=== PATIENT | male | born 1965 | race Caucasian/White ===

== ENCOUNTER → 2020-04-09 16:39 | Outpatient (CLI) | payer OTHER, SELFPAY ==
--- NOTE | ~2020-04-09 | XR_ITS ---
XR hand BI arthritis min 3V DATE: 04/09/2020 17:24 INDICATION: Hand pain TECHNIQUE: 4 views of each hand COMPARISON: 10/25/2016 bilateral hands FINDINGS: Right hand: Osteoarthritic changes are noted at the first and third metacarpophalangeal joints and at some of the interphalangeal joints. No fracture, dislocation, periosteal reaction or bone destruction or erosive change is noted. Left hand: Osteoarthritic changes noted at the first carpometacarpal, first and second metacarpophalangeal and s ome interphalangeal joints. No fracture, dislocation, periosteal reaction or bone destruction or erosive change is evident. IMPRESSION: Joint space narrowing at third metacarpophalangeal joint on the right 10/25/2016 Reviewed, dictated and finalized at location A. IMPRESSION: Joint space narrowing at third metacarpophalangeal joint on the rig ht 10/25/2016
== END ==
PROVIDERS: PCP Plastic Surgery; Visit Provider Plastic Surgery
DX: M19.031 Primary osteoarthritis, right wrist (principal); M19.041 Primary osteoarthritis, right hand
CPT/HCPCS: 73130

== ENCOUNTER 2020-06-13 11:27 | Outpatient (CLI) | payer OTHER, SELFPAY ==
--- NOTE | 2020-06-13 11:45 | ECG_ITS ---
Measurements Intervals [place] Rate: 65 P: 44 FL: 154 QRS: 42 QRSD: 89 T: 56 QT: 376 QTc: 393 Interpretive Statements SINUS RHYTHM NORMAL ECG Electronically Signed On 06-13-2020 15:14:40 CDT by Wayne Tran D.O.
== END 2020-06-13 11:28 | disposition home or self-care (01) ==
PROVIDERS: PCP Family Medicine
DX: M47.22 Other spondylosis with radiculopathy, cervical region (principal)
CPT/HCPCS: 93005

== ENCOUNTER 2020-07-10 19:55 | Emergency (ER) | payer OTHER, SELFPAY ==
--- NOTE | ~2020-07-10 | XR_ITS ---
EXAMINATION: XR shoulder RT min 2V DATE: 07/10/2020 20:28 INDICATION: Right shoulder pain and deformity post fall TECHNIQUE: AP and transscapular Y views of the right shoulder were obtained. COMPARISON: None FINDINGS: Anterior right glenohumeral dislocation with the right humeral head positioned along the anteroinferi or margin of the glenoid. No evident fracture. Normal alignment and joint space at the right acromioc lavicular joint. Visualized portions of the right lung are clear. Multilevel mid to lower cervical an terior spinal fusion with interbody bone graft cages and anterior plate and screw fixation likely at C4-C7. IMPRESSION: Anterior right glenohumeral dislocation. Reviewed, dictated and finalized at location A.
--- NOTE | ~2020-07-10 | XR_ITS ---
EXAMINATION: XR shoulder RT min 2V DATE: 07/10/2020 20:42 INDICATION: Status postreduction right glenohumeral dislocation TECHNIQUE: AP and transscapular Y views of the right shoulder were obtained. COMPARISON: None FINDINGS: Successful reduction of the previously dislocated right glenohumeral joint which is now in normal ali gnment. No fracture. Acromioclavicular joint is normal. Soft tissues are unremarkable. IMPRESSION: Successful reduction of the previously dislocated right glenohumeral joint which is now in normal ali gnment. No evident fracture. Reviewed, dictated and finalized at location A. IMPRESSION: Successful reduction of the previously dislocated right glenohumeral joint whic h is now in normal alignment. No evident fracture.
[2020-07-10 19:52] VITALS: BP 95/69; PULSE 64; RESP 20; TEMP 36.4; O2SAT 99
--- NOTE | 2020-07-10 19:57 | ED.HEATRA ---
HPI - Head Injury General Chief complaint: Head Injury Stated complaint: fall History of Present Illness HPI Narrative: 54 yo male brought in by EMS from home after a fall. He reports that he was bending over to pick something up when he lost his balance and fell. He struck his forehead and landed on outstretched right hand. He has severe pain and limited ROM in the right shoulder. Additionally he sustained a laceration to the forehead. He admits to drinking alcohol earlier in the evening. Uncertain if he lost consciousness. Related Data Allergies Allergy/AdvReac Type Severity Reaction Status Date / Time niacin Allergy Unknown flushing Verified 07/10/20 20:03 Review of Systems Review of Systems: All systems reviewed & are unremarkable except as noted in HPI and below Constitutional: Constitutional: Denies fever(s) and Denies weakness Cardiovascular: Cardiovascular: Denies chest pain Respiratory: Respiratory: Denies dyspnea Gastrointestinal: Gastrointestinal: Denies nausea and Denies vomiting Musculoskeletal: Musculoskeletal: Denies back pain Neurologic: Denies dizziness, Denies syncope, Reports headache(s) and Denies weakness PMF Social History Social History Smoking status: Current every day smoker Alcohol intake: current Exam Const: General: no acute distress and alert Orientation/consciousness: patient oriented x3 HENMT: Other: 4 cm forehead laceration. Chipped tooth #9. Eyes: Pupils: Equal, round and reactive pupils present EOM: EOMs intact bilaterally Resp: Effort & Inspection: normal respiratory effort Auscultation: clear to auscultation bilaterally Cardio: Rate: regular rate Rhythm: regular rhythm GI: GI Palp: Yes Soft to palpation and No Tenderness to palpation present (GI) Skin: General skin exam: normal color Other: Distal motor and sensory intact to left arm. Neuro: General: patient oriented x3, moves all extremities and no focal motor deficits Cranial nerves: Yes CN's II-XII intact bilaterally Speech: Abnormal speech present slurred Extrem: Other: deformity of left shoulder. Significantly reduced ROM. Course Vital Signs Vital signs: Vital Signs Temperature 36.4 C 07/10/20 19:52 Pulse Rate 64 07/10/20 19:52 Respiratory Rate 20 07/10/20 19:52 Blood Pressure 95/69 L 07/10/20 19:52 Pulse Oximetry 99 07/10/20 19:52 Temperature 36.4 C 07/10/20 19:52 Pulse Rate 77 07/10/20 21:21 Respiratory Rate 19 07/10/20 21:21 Blood Pressure 138/75 07/10/20 21:21 Pulse Oximetry 97 07/10/20 21:21 Procedures Laceration Laceration 1: Date: 07/10/20 Time: 21:47 Site: face Size (cm): 4 Description: linear Depth: simple, single layer Local Anesthetic: lidocaine 1% and with epi Amount of anesthesia used (mL): 4 Pre-repair: wound explored and irrigated ====== Skin Level ====== Skin layer closed with: other (Fast Gut) Size (cm): 5-0 Number of sutures: 5 Technique: simple, interrupted ====== Subcutaneous Layer ====== ====== Muscle Layer ====== ====== Tendon Layer ====== Orthopedic Joint Reduction Joint #1: Side: right Joint Reduction Location: shoulder Analgesia: other (morphine) Pre-Procedure Neuro Vascular Exam: normal Shoulder Technique Used (if applicable): external rotation Post-reduction neuro exam: intact Post-reduction vascular: intact Post Reduction X-Ray Obtained: Yes Post Reduction X-Ray Results: reduced Splint Applied: Yes Patient Tolerated Procedure: well Discharge Plan Discharge Clinical Impression: Anterior shoulder dislocation Qualifiers: Encounter type: initial encounter Laterality: right Qualified Code(s): S43.014A - Anterior dislocation of right humerus, initial encounter Forehead laceration Qualifie
[2020-07-10] MEDS: MORPHINE SULFATE (*CRX) 4 MG/ML INJ IV PUSH (20:06)
[2020-07-10] MEDS: KETOROLAC 30 MG/ML VIAL (*BKC) IV PUSH (21:18)
[2020-07-10 21:21] VITALS: BP 138/75; PULSE 77; RESP 19; O2SAT 97
[2020-07-10] MEDS: LIDO 1%/EPINEPHRINE 1:100,000 10 ML VIAL 5 ML INFILTRATE (21:35)
--- NOTE | 2020-07-10 21:36 | PC.NURSE ---
in room suturing patient.
[2020-07-10 22:20] VITALS: BP 138/78; PULSE 70; RESP 18; TEMP 36.7; O2SAT 97
== END 2020-07-10 22:21 | disposition home or self-care (01) ==
PROVIDERS: Emergency Provider Emergency Medicine; PCP Family Medicine
DX: S43.014A Anterior dislocation of right humerus, initial encounter (principal); S01.81XA Laceration without foreign body of other part of head, initial encounter; F17.200 Nicotine dependence, unspecified, uncomplicated; W18.39XA Other fall on same level, initial encounter
CPT/HCPCS: 12013; 23650; 73030; 96374; 96375; 99285; J1885; J2270

== ENCOUNTER → 2020-09-07 08:24 | Outpatient (CLI) | payer OTHER, SELFPAY ==
--- NOTE | ~2020-09-07 | MR_ITS ---
EXAMINATION: MR shoulder RT wo con DATE: 09/07/2020 09:27 INDICATION: Right shoulder pain. TECHNIQUE: Magnetic resonance imaging (MRI) of the right shoulder was performed without intravenous c ontrast. Sequences included axial PD-weighted FS FSE, coronal oblique PD-weighted FS FSE and T2-weigh jace FS FSE, and sagittal oblique T2-weighted FS FSE and T1-weighted FSE. COMPARISON: Right shoulder radiographs 07/15/2020 FINDINGS: Coracoacromial arch: The acromion undersurface is curved in morphology (type II). There is severe acromioclavicular joint osteoarthritis. There is an effusion of the acromioclavicular joint that is likely contiguous with mo derate subacromial/subdeltoid bursitis. Rotator cuff: There is severe supraspinatus and infraspinatus tendinopathy. There is a full-thickness tear of anter ior supraspinatus tendon measuring 8 mm anterior to posterior by 23 mm proximal to distal. There is a bursal sided partial-thickness tear of supraspinatus and infraspinatus tendons. Teres minor tendon i s normal. There is severe subscapularis tendinopathy with distal interstitial tear. There is no asymm etric fatty atrophy of the rotator cuff muscle bellies. Biceps tendon and glenoid labrum: Biceps tendon is medially displaced into the subscapularis tendon tear. There is mild intra-articular biceps tendinopathy. There is a tear of superior labrum from 11:00 to 12:00 (SLAP tear). Fluid: There is a moderate-sized glenohumeral joint effusion. Bones/cartilage: There is shallow partial-thickness cartilage loss of glenoid and humeral head. IMPRESSION: 1. Severe rotator cuff tendinopathy with full-thickness rotator cuff tear. 2. Mild glenohumeral joint chondrosis. SLAP tear. 3. Severe acromioclavicular joint osteoarthritis. 4. Mild biceps tendinopathy. Medial displacement of the biceps tendon into a subscapularis tendon par tial tear. 5. Moderate-sized glenohumeral joint effusion, moderate subacromial/subdeltoid bursitis, and likely c ontiguous acromioclavicular joint effusion. Reviewed, dictated and finalized at location A. DEMONSTRATOR IMPRESSION: 1. Severe rotator cuff tendinopathy with full-thickness rotator cuff tear. 2. Mild glenohumeral joint chondrosis. SLAP tear. 3. Severe acromioclavicular joint osteoarthritis. 4. Mild biceps tendinopathy. Medial displacement of the biceps tendon into a hoskins bscapularis tendon partial tear. 5. Moderate-sized glenohumeral joint effusion, moderate subacromial/subdeltoid bursitis, and likely contiguous acromioclavicular joint effusion.
== END ==
PROVIDERS: Visit Provider Nurse Practitioner Family
DX: M19.011 Primary osteoarthritis, right shoulder (principal); S43.431A Superior glenoid labrum lesion of right shoulder, initial encounter; M75.121 Complete rotator cuff tear or rupture of right shoulder, not specified as traumatic; M75.51 Bursitis of right shoulder
CPT/HCPCS: 73221

== ENCOUNTER 2020-12-15 11:27 | Outpatient (CLI) | payer OTHER, SELFPAY | END 2020-12-15 11:28 | disposition home or self-care (01) | LOC: ANHCOVIDVC 11:27 | PROVIDERS: PCP Family Medicine | DX: Z23 Encounter for immunization (principal) | CPT/HCPCS: 0001A; 91300 ==

== ENCOUNTER 2021-01-05 11:15 | Outpatient (CLI) | payer OTHER, SELFPAY | END 2021-01-05 11:16 | disposition home or self-care (01) | LOC: ANHCOVIDVC 11:16 | PROVIDERS: PCP Family Medicine | DX: Z23 Encounter for immunization (principal) | CPT/HCPCS: 0002A; 91300 ==

== ENCOUNTER → 2021-02-22 14:47 | Outpatient (CLI) | payer OTHER, SELFPAY ==
--- NOTE | ~2021-02-22 | CT_ITS ---
EXAMINATION: CT lung screening DATE: 02/22/2021 15:14 INDICATION: Personal history of nicotine dependence, current smoker with 35 pack year history TECHNIQUE: Computed tomography (CT) of the chest was performed without intravenous contrast. The dose -length product (DLP) was 382.51 mGy-cm. Automated exposure control and iterative reconstruction tech [employer] were employed. COMPARISON: None FINDINGS: No suspicious pulmonary nodules are identified. The lungs are free of acute opacities. Ther e is no pleural effusion or pneumothorax. No pathologically enlarged thoracic lymph nodes are identif ied. The heart size is normal. Calcified coronary artery atherosclerosis is noted. There are partiall y imaged changes of anterior fusion in the lower cervical spine. Subendocardial fat deposition in the left ventricular apex and interventricular septum is consistent with prior myocardial infarction. IMPRESSION: 1. Lung-RADS category 1: Negative. Continue annual screening with noncontrast low-dose chest CT in 12 months. Reviewed, dictated and finalized at location A. IMPRESSION: 1. Lung-RADS category 1: Negative. Continue annual screening with noncontrast l ow-dose chest CT in 12 months.
== END ==
PROVIDERS: PCP Family Medicine; Visit Provider Family Medicine
DX: Z12.2 Encounter for screening for malignant neoplasm of respiratory organs (principal); Z87.891 Personal history of nicotine dependence
CPT/HCPCS: 71271

== ENCOUNTER 2021-04-21 19:42 | Emergency (ER) | payer OTHER, SELFPAY ==
[2021-04-21 19:51] VITALS: BP 143/80; PULSE 84; RESP 16; TEMP 36.2; O2SAT 99
--- NOTE | 2021-04-21 20:44 | ED.GENADULT ---
HPI - General Adult General Chief complaint: Animal Bite Stated complaint: dog bite Time Seen by Provider: 04/21/21 20:44 Source: patient and RN notes reviewed Mode of arrival: ambulatory Limitations: no limitations History of Present Illness HPI narrative: 55-year-old male presents with complaints of dog bite to RT hand, 1st (baby), 2nd (index), and 3rd (middle) fingers, occurring at approximately 19:00 today. ?Chintan reports breaking up a dog fight (his dog and his daughter's dog) and RT hand was caught in the middle, not sure which dog bit his hand. ?Pressure dressing to control bleeding. ?Discomfort, swelling, and redness. ?Bloody drainage. ?Denies new tingling or numbness. Denies immobility. ?Exacerbating factors consist of movement and palpation. ?No relieving factors. ?Denies altered sensation, back pain, neck pain, and suspected foreign body. ?Denies falling, hitting head, or loss of consciousness. ?Remains active. ?Tetanus vaccine NOT up-to-date. 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 ?The patient reports he has not been diagnosed with COVID-19. ?The patient reports he received 2 [employer] COVID-19 vaccines. ?The patient reports he is not waiting for the results of a COVID-19 lab test. ?The patient reports she does not have fever, chills, weakness, or fatigue. ?The patient reports he does not have a new or worsening cough or shortness of breath. ?The patient reports he does not have any rhinorrhea, congestion, loss of taste, sore throat, and diarrhea. ?Denies recent traveling. Denies concerns for COVID-19 or exposures. At this time, the patient is not suspected of having COVID-19.? Some parts of this dictation were generated by voice recognition software and may contain typographical and/or grammatical inaccuracies. Related Data Allergies Allergy/AdvReac Type Severity Reaction Status Date / Time niacin Allergy Unknown flushing Verified 01/27/21 15:00 Review of Systems Review of Systems: Narrative: CONSTITUTIONAL: Denies fever, chills, sweats. EYES: Denies visual changes, redness, discharge. ENT: Denies rhinorrhea, congestion, sore throat, otalgia. CARDIOVASCULAR: Denies chest pain, palpitations, edema. RESPIRATORY: Denies dyspnea, wheezing, cough. GASTROINTESTINAL: Denies abdominal pain, nausea, vomiting, diarrhea. GENITOURINARY: Denies dysuria, hematuria, abnormal discharge. SKIN: Denies rash or itching. Complaints of dog bite to RT hand, 1st (baby), 2nd (index), and 3rd (middle) fingers with mild redness, swelling, discomfort, bloody drainage. MUSCULOSKELETAL: Denies acute back pain, joint pain, or myalgia. NEUROLOGIC: Denies numbness or focal weakness. PSYCHIATRIC: Denies anxiety or depression. All other systems reviewed are negative, except as documented in HPI and below. [facility] Past Medical History Medical History Anxiety Depression Dislocation, shoulder closed Obesity Rotator cuff tear Surgical History Surgical History H/O shoulder surgery History of fusion of cervical spine Family History Family History Father Family history of cardiovascular disease Acute myocardial infarction, Onset Age: 40 Family history of aortic aneurysm Mother Family history of Alzheimer's disease Social History Social History Smoking packs per day: 0.5 Smoking cigarettes per day: 10.0 Years smoked: 35 Smoking pack-years: 17.50 Smoking status: Current every day smoker (SMOKING AGE 17 1PPD FOR 38 YEARS NOW SMOKING 7 CIG S A DAY) Tobacco type: cigarettes Alcohol intake: current Drinks per week: 6 Substance use: unknown Gender identity (if verbalized by the patient): Male Comments At time of signature, agree with nurse past medical, surgical, social, and family history. The
[2021-04-21] MEDS: TETANUS,DIPHTHERIA,AC PERTUSSIS ADULT (0.5 ML) BOOSTRIX IM (20:55)
== END 2021-04-21 21:38 | disposition home or self-care (01) ==
PROVIDERS: Emergency Provider Nurse Practitioner Family; PCP Family Medicine
DX: S61.451A Open bite of right hand, initial encounter (principal); S61.250A Open bite of right index finger without damage to nail, initial encounter; S61.252A Open bite of right middle finger without damage to nail, initial encounter; S61.256A Open bite of right little finger without damage to nail, initial encounter; W54.0XXA Bitten by dog, initial encounter; Z23 Encounter for immunization; F17.210 Nicotine dependence, cigarettes, uncomplicated; E66.9 Obesity, unspecified; Z68.30 Body mass index [BMI] 30.0-30.9, adult
CPT/HCPCS: 12001; 90471; 90715; 99213; G0463

== ENCOUNTER 2021-12-30 10:00 | Outpatient (CLI) | payer OTHER, SELFPAY ==
--- NOTE | ~2021-12-30 | CT_ITS ---
EXAMINATION: CT diagnostic chest w con EXAM DATE: 12/30/2021 16:02 INDICATION: R04.2 - Hemoptysis. TECHNIQUE: Spiral CT of the chest following intravenous injection of 75 mL Omnipaque 350. Axial, cor onal and sagittal images of the chest were reviewed. Coronal maximum intensity pixel images of chest reviewed. The dose-length product (DLP) for this examination was 404.56 mGy-cm. The exposure was t ailored according to patient size (auto mA exposure control), and iterative reconstruction ([employer]) was used as additional dose reduction technique. Comparison is made to prior examination from 02/22/2021. FINDINGS: Small amount of right upper lobe airspace disease appearance, probably pneumonitis. A 3 mo nth follow-up chest CT is recommended to exclude chronic process. Possible other faint regions of brynn undglass airspace disease. No central pulmonary emboli. There are no pleural or pericardial effusion s. Tracheobronchial tree is patent. There is no mediastinal, hilar or axillary lymphadenopathy. There is no pneumothorax. Heart normal in size. There is mild coronary arterial calcification, a rterial sclerosis. Upper abdomen is unremarkable. There is mild thoracic spondylosis without osteo blastic or osteolytic lesions identified. IMPRESSION: Subsegmental right apical groundglass airspace disease, probably pneumonitis. Consider ea rly viral or bacterial pneumonia. Possible smaller regions of groundglass airspace disease. 3 month f ollow-up chest CT without contrast recommended. Reviewed, dictated and finalized at location G. IMPRESSION: Subsegmental right apical groundglass airspace disease, probably pn eumonitis. Consider early viral or bacterial pneumonia. Possible smaller region s of groundglass airspace disease. 3 month follow-up chest CT without contrast recommended.
--- NOTE | ~2021-12-30 | XR_ITS ---
EXAMINATION: XR chest 2V 12/30/2021 10:22 INDICATION: Hemoptysis. Sinus congestion. PROCEDURE: 2 view chest COMPARISON: No prior studies for comparison. FINDINGS: The lungs are clear. The cardiomediastinal silhouette is within normal limits. There are no pleural effusions. There is no pneumothorax suspected. IMPRESSION: 1: NO ACUTE CARDIOPULMONARY DISEASE. Reviewed, dictated and finalized at location A.
== END 2021-12-30 10:01 | disposition home or self-care (01) ==
PROVIDERS: PCP Family Medicine; Visit Provider Family Medicine
DX: R04.2 Hemoptysis (principal); F17.200 Nicotine dependence, unspecified, uncomplicated; I25.10 Atherosclerotic heart disease of native coronary artery without angina pectoris; I70.90 Unspecified atherosclerosis; M47.812 Spondylosis without myelopathy or radiculopathy, cervical region
CPT/HCPCS: 71046; 71260; Q9967

== ENCOUNTER 2022-04-06 08:03 | Outpatient (CLI) | payer OTHER, SELFPAY ==
--- NOTE | ~2022-04-06 | CT_ITS ---
EXAMINATION: CT diagnostic chest wo con DATE: 04/06/2022 08:29 INDICATION: Recent hemoptysis. 12/26/2021 CTA chest report of subsegmental right apical groundglass airspace disease, probable pneumo nitis, possibly early viral or bacterial pneumonia. Possible smaller regions of groundglass airspace disease. [address] chest follow-up is recommended TECHNIQUE: Computed tomography (CT) of the chest was performed without intravenous contrast. Automate d exposure control and iterative reconstruction technique were employed. Exam dose: 415.41 mGy-cm to igor exam DLP. COMPARISON: 12/30/2021 CT chest FINDINGS: The lungs are clear of infiltrate or consolidation. No pulmonary mass density. Normal heart size. Coronary artery calcification. No pericardial or pleural effusion. Thoracic aortic and right brachiocephalic artery calcification. No thoracic aortic aneurysm. No hilar or mediastinal mass lesion or lymphadenopathy. Normal morphology of the adrenal glands. Probable small cyst of the left hepatic lobe. Normal splenic size. Status post anterior cervical spine surgical fusion. IMPRESSION: The lungs are clear. Resolution of previous right apical infiltrate since 12/30/2021 Reviewed, dictated and finalized at Location A. Reviewed, dictated and finalized at location B. IMPRESSION: The lungs are clear. Resolution of previous right apical infiltrat e since 12/30/2021
== END 2022-04-06 08:04 | disposition home or self-care (01) ==
PROVIDERS: PCP Family Medicine; Visit Provider Physician Assistant
DX: J18.9 Pneumonia, unspecified organism (principal); I25.10 Atherosclerotic heart disease of native coronary artery without angina pectoris; R04.2 Hemoptysis; Z98.1 Arthrodesis status
CPT/HCPCS: 71250

== ENCOUNTER 2023-05-12 08:00 | Outpatient (CLI) | payer OTHER, SELFPAY ==
--- NOTE | ~2023-05-12 | CT_ITS ---
CT Scan of the Chest without Contrast: Clinical Indication: Lung cancer screening, personal history of nicotine dependence Technique: Contiguous sections were acquired throughout the chest without intravenous contrast. Dose reduction technique was used on this scan by utilizing automated exposure control and iterative recon struction technique. The dose-length product (DLP) was 200.79 mGy-cm. COMPARISON: 03/28/2022, 12/30/2021 Findings: There is no evidence of any significant mediastinal, hilar or axillary lymphadenopathy. There are mil d atherosclerotic calcifications of the aorta and coronary arteries. There is no evidence of pleural or pericardial effusion. The lungs are clear. No pulmonary nodules or infiltrates are noted. Images through the upper abdomen reveal no abnormalities. Impression: Lung RADS 1: Negative. 12 month follow-up screening CT advised. Reviewed, dictated and finalized at [facility]. Impression: Lung RADS 1: Negative. 12 month follow-up screening CT advised.
== END 2023-05-12 08:01 | disposition home or self-care (01) ==
PROVIDERS: PCP Family Medicine; Visit Provider Family Medicine
DX: Z12.2 Encounter for screening for malignant neoplasm of respiratory organs (principal); Z87.891 Personal history of nicotine dependence
CPT/HCPCS: 71271

== ENCOUNTER → 2023-05-22 11:39 | Outpatient (CLI) | payer OTHER, SELFPAY ==
--- NOTE | ~2023-05-22 | US_ITS ---
EXAMINATION: US soft tissue upper back DATE: 05/22/2023 12:06 INDICATION: Posterior thorax mass. TECHNIQUE: Multiple grayscale and Doppler ultrasound images of the posterior thorax were obtained. COMPARISON: Chest CT 05/12/2023 FINDINGS: In the posterior superior thorax at the midline, there is a 1.0 x 1.4 x 1.9 cm subcutaneous hypoechoic mass with tract to the skin at the inferior aspect of the cervical spine surgery scar. IMPRESSION: 1. 1.9 cm subcutaneous mass in the posterior superior thorax at the midline at the inferior aspect of the cervical spine surgery scar. This finding may be a sebaceous cyst, chronic hematoma, or abscess. Reviewed, dictated and finalized at location A. IMPRESSION: 1. 1.9 cm subcutaneous mass in the posterior superior thorax at the midline at the inferior aspect of the cervical spine surgery scar. This finding may be a s ebaceous cyst, chronic hematoma, or abscess.
== END ==
PROVIDERS: PCP Family Medicine; Visit Provider Family Medicine
DX: R22.2 Localized swelling, mass and lump, trunk (principal)
CPT/HCPCS: 76604

== ENCOUNTER 2023-08-29 09:00 | Outpatient (RCR) | payer OTHER, SELFPAY ==
--- NOTE | 2023-07-31 09:52 | OPREHPOC ---
Outpatient Therapy Plan of Care This is a Multidisciplinary Plan of Care that may contain components documented by all disciplines (PT, OT, and ST.) PT Problem 1 PT Problem #1 Knowledge Deficit PT Goal 1 Goal Pt to be IND with issued HEP. Target Visit 4 PT Problem 2 PT Problem #2 Pain PT Goal 1 Goal Pt to report back pain no greater than 3/10 in the last week. Target Visit 4 PT Goal 2 Goal Pt to reports 75% improvement in overall symptoms Target Visit 4 PT Problem 3 PT Problem #3 Impaired Strength PT Goal 1 Goal Pt to be able to lift 20lb box from ground without deviations. Target Visit 4
--- NOTE | 2023-07-31 09:52 | PTOPEVAL1 ---
Assessment and note entered by Mae Syed, PT, DPT Evaluation Information Assessment Status Evaluation Diagnosis low back pain Onset 1 year Subjective Information Pt arrived 20 mins late for his evaluation. Pt states he back hurts because he is old and gravity if pulling him down. He states his lower back will benefit from traction, because it did last time. He reports lower and middle back pain, that has increased in frequency over the last year and now is daily. He states nothing makes the pain worse, but sitting in his recliner helps relieve his pain. Pt is retired, he states he likes messing around his house and doing yard work. He walks daily, about 3-4 miles a day. He reports 2 cervical fusions in the last two years, he states his whole body is bone on bone, he states they even want to fuse his finger joints together. Reported Pain Level Pain Score 0: Self Report Assessment PT Clinical Summary Chintan presents to therapy today for his initial evaluation with a diagnosis of lumbar pain. Today he demonstrates good flexibility and LE strength. He declines any tenderness to palpation. He does stand with an anteriorly shifted pelvic with an anterior weight shift. Skilled therapy services are indicated to improve core strength, thoracic and lumbar mobility, to improve body mechanics, and to improve pain reports. Plan of Care Interventions Electrical Stimulation,Gait Training,Hot Pack/Cold Pack,Manual Therapy,Neuro Re-education,Patient/ Caregiver Educati,Therapeutic Activities, Therapeutic Exercise PT Services Indicated Yes These treatments will address the objective and functional deficits as defined above. The patient will be advanced safely and appropriately in order for the patient to progress towards his/her prior level of function. Additional exercises will be introduced and as well as a comprehensive home exercise program upon discharge, if needed, ?to ensure carryover of functional gains achieved in the clinic. This treatment plan has been reviewed and agreement upon by the patient.
--- NOTE | 2023-08-29 09:54 | PTOPDC ---
Assessment and note entered by Mae Syed, PT, DPT Evaluation Information Assessment Status discharge Diagnosis low back pain Onset 1 year Subjective Information Pt states he is doing better since starting therapy. He states he is not completely pain free but is progressing well. He states his middle back is feeling better with the exercises and low back is feeling better with the traction. Reported Pain Level Pain Score 0,1: Self Report Assessment PT Clinical Summary Chintan presents to therapy today for his progress report following 5 visits of skilled therapy to treat his diagnosis of lumbar pain. He demonstrates good progress towards his goal this date. He reports 75% improvement in his overall symptoms. He states he would like to continue his HEP independently at this time. He will be discharged. Plan of Care PT Services Indicated No
== END 2023-08-29 14:59 | disposition home or self-care (01) ==
LOC: ANHGOSHPT 09:00
PROVIDERS: PCP Family Medicine
DX: M54.50 Low back pain, unspecified (principal)
CPT/HCPCS: 97012; 97110; 97161; 97530

== ENCOUNTER 2024-05-22 09:47 | Outpatient (CLI) | payer OTHER, SELFPAY ==
--- NOTE | ~2024-05-22 | CT_ITS ---
EXAMINATION: CT lung screening DATE: 05/22/2024 10:13 INDICATION: Z87.891 - Personal history of nicotine dependence TECHNIQUE: Computed tomography (CT) of the chest was performed without intravenous contrast. Addition al 3D reconstructions utilizing coronal maximum intensity projection (MIP) were performed. Automated exposure control and iterative reconstruction technique were employed. The dose-length product was 29 0.11 mGy-cm. COMPARISON: 05/12/2023 FINDINGS: Small calcified right upper lobe nodule consistent with old granulomatous disease. Mild dependent ate lectasis in bilateral lower lobes. No other suspicious pulmonary nodules, pneumonia, pulmonary edema or pleural effusion. Heart size is normal. Atherosclerotic coronary artery calcific lesion. Thoracic aorta is normal in caliber. No pathologically enlarged thoracic lymphadenopathy. Visualized upper abd omen is unremarkable. Moderate thoracic spondylosis. Incompletely visualized lower cervical combined instrumented anterior and posterior spinal fusion. IMPRESSION: 1. Lung-RADS category 1: Negative. Continue annual screening with noncontrast low-dose chest CT in 12 months. Reviewed, dictated and finalized at location A. IMPRESSION: 1. Lung-RADS category 1: Negative. Continue annual screening with noncontrast l ow-dose chest CT in 12 months.
== END 2024-05-22 09:48 | disposition home or self-care (01) ==
PROVIDERS: PCP Family Medicine; Visit Provider Nurse Practitioner
DX: Z12.2 Encounter for screening for malignant neoplasm of respiratory organs (principal); Z87.891 Personal history of nicotine dependence
CPT/HCPCS: 71271

== ENCOUNTER 2024-08-19 13:55 | Outpatient (CLI) | payer OTHER, SELFPAY ==
--- NOTE | ~2024-08-19 | US_ITS ---
EXAMINATION: US renal BI DATE: 08/19/2024 14:07 INDICATION: Family history of polycystic kidney disease TECHNIQUE: Multiple ultrasound grayscale images of the kidneys were obtained. COMPARISON: None. FINDINGS: The right kidney measures 10.6 x 5.6 x 6.1 cm. The left kidney measures 7.4 x 4.6 x 6.3 cm. The kidne ys demonstrate normal echogenicity. There is no hydronephrosis in either kidney. No stones identifie d. The bladder is normal. IMPRESSION: 1. Normal kidneys without hydronephrosis. Reviewed, dictated and finalized at location B. MONITOR
== END 2024-08-19 13:56 | disposition home or self-care (01) ==
LOC: GOSHIMG 13:55
PROVIDERS: PCP Family Medicine; Visit Provider Family Medicine
DX: Z82.71 Family history of polycystic kidney (principal)
CPT/HCPCS: 76775

== ENCOUNTER 2024-10-22 12:56 | Outpatient (CLI) | payer OTHER, SELFPAY ==
--- NOTE | ~2024-10-22 | MR_ITS ---
EXAMINATION: MR humerus RT wo/w con DATE: 10/22/2024 13:41 INDICATION: Right arm pain TECHNIQUE: Magnetic resonance imaging (MRI) of the right humerus/upper arm from the shoulder to the e lbow was performed without and with 18 mL Multihance intravenous contrast. A marker was placed over the region of concern. Sequences included axial, sagittal and coronal T1-weighted FSE and fluid sensi tive FSE STIR, axial T1-weighted FS FSE and post contrast axial and coronal T1-weighted FS FSE were a lso obtained. COMPARISON: Right shoulder MRI dated 09/07/2022 FINDINGS: There are new postoperative changes of likely right rotator cuff repair with metallic magnetic field artifact associated with likely suture anchors at the greater tuberosity. The integrity of the rotato r cuff repair is unable to be diagnostically assessed due to the low resolution on the large field-of -view imaging of the right upper arm relative to a standard small lvaor-vh-evda right shoulder MRI. T he acromion appears thinned relative to the prior study suggesting associated acromioplasty. The long head biceps tendon is not visualized at the intertubercular groove suggesting prior bicipital tenode sis. Severe right acromioclavicular and mild glenohumeral osteoarthritis. There is also moderate oste oarthritis at the right elbow with deep chondral ulceration and underlying subarticular cystlike fischer ge at the radial side of the trochlear articulation with the olecranon. No right elbow or glenohumera l joint effusions. No other abnormal fluid collections in the right upper arm. Asymmetric muscular at rophy or abnormal signal in the right upper arm. No abnormally enhancing lesions identified. IMPRESSION: 1. Interval postoperative changes at the right shoulder including likely acromioplasty, rotator cuff repair and bicipital tenodesis. Integrity of the rotator cuff repair is unable to be accurately asses sed on the larger efqhu-dv-pdhu images. If this of clinical concern would recommend [facility] for further evaluation. 2. 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 Reviewed, dictated and finalized at location B. NING MACHINE OPERATOR IMPRESSION: 1. Interval postoperative changes at the right shoulder including likely acromi oplasty, rotator cuff repair and bicipital tenodesis. Integrity of the rotator cuff repair is unable to be accurately assessed on the larger cpeag-nr-odgp elaine ges. If this of clinical concern would recommend dedicated right shoulder MRI f or further evaluation. 2. Polyarticular osteoarthritis, severe at the right acromioclavicular joint, m oderate at the elbow and mild at the glenohumeral joint.
== END 2024-10-22 12:57 | disposition home or self-care (01) ==
LOC: MICIMG 12:57
PROVIDERS: PCP Family Medicine; Visit Provider Nurse Practitioner
DX: M19.011 Primary osteoarthritis, right shoulder (principal); Z98.890 Other specified postprocedural states
CPT/HCPCS: 73220; A9577

== ENCOUNTER 2024-12-05 12:10 | Outpatient (CLI) | payer OTHER, SELFPAY | END 2024-12-05 12:11 | disposition home or self-care (01) | LOC: GOSHIMG 12:11 | PROVIDERS: PCP Nurse Practitioner; Visit Provider Nurse Practitioner | DX: M19.072 Primary osteoarthritis, left ankle and foot (principal) | CPT/HCPCS: 73600; 73620 ==

== ENCOUNTER 2025-05-23 07:03 | Outpatient (CLI) | payer OTHER, SELFPAY ==
--- NOTE | ~2025-05-23 | CT_ITS ---
CT Scan of the Chest without Contrast: Clinical Indication: Lung cancer screening, nicotine dependence Technique: Contiguous sections were acquired throughout the chest without intravenous contrast. Dose reduction technique was used on this scan by utilizing automated exposure control and iterative recon struction technique. The dose-length product (DLP) was 195.08 mGy-cm. COMPARISON: 05/22/2024 Findings: There is no evidence of any significant mediastinal, hilar or axillary lymphadenopathy. The mediastin al soft tissues appear normal. There is no evidence of pleural or pericardial effusion. The lungs are clear. No pulmonary nodules or infiltrates are noted. Images through the upper abdomen reveal no abnormalities. Impression: Lung RADS 1: Negative. 12 month follow-up screening CT advised. Reviewed, dictated and finalized at location . Impression: Lung RADS 1: Negative. 12 month follow-up screening CT advised.
--- OUTSIDE RECORDS SUMMARY | 2025-05-23 07:08 | XMS_ITS | Continuity of Care Document ---
Author Organization [facility] Address [address] [place] [address] Phone Care Team Providers Care Carpenter Helper Name Role Phone No Information Unavailable Unavailable Advance Directives Directive Yes / No Effective Date File Name No Information Encounters Encounter Description Practice Location Reason(s) For Visit Diagnoses Date Provider Providers Copied on Encounter [facility] , [id number] [place], [place] [address]helio [facility] [address], [place], [address], tel:[phone] [facility] No Information 0 No Information Referring Provider: Wild Parnell, [address] , [place], [address] . tel:[phone] Family History Family Member Type Diagnosis Age At Onset No Information Payers Payer name Insurance type Covered alliance party ID Authoriza hollie(s) [facility] [id number] Social History Type Description Quantity Date Captured Comments Alcohol Use Details Unknown Caffeine Use Details Unknown Tobacco Use Status No Information Smoking Status No Information Sex Male Chief Complaint And Reason For Visit No Information Reason For Referral Reason For Referral No Information History Of Present Illness Encounter Date Complaint History Of Prese nt Illness No Information Functional Status Date Functional Assessmen t No Information Instructions Date Instruction Additional Infor mation No Information Assessments Type Assessment Date No Information Patient Care Teams Name Effective Dates (start - stop) Status Members No Information
--- OUTSIDE RECORDS SUMMARY | 2025-05-23 07:08 | XMS_ITS | Encounter Summary ---
Author Organization [facility] Address [address] [place] [address] Phone Care Team Providers Care Bag Adjuster Name Role Phone Josefa Parry Primary Care Provider [phone] Suzette Ford MD Unavailable [phone] Reason for Referral * Consultation (Routine) - Pending Review Specialty Diagnoses / Procedures Referred By Contact Referred To Contact Physical Medicine and Rehabilitation Diagnoses Right shoulder pain, unspecified chronicity Rosalino Ang MD [address] [place] [address] Phone: tel:[phone] fax:[phone] [facility] (All Locations) Referral ID Status Reason Start Date Expiration Date Visits Requested Visits Authorized [id number] Pending Review Specialty Services Required 05/21/2025 06/20/2026 1 1 Question Answer Please select the performing region: [facility] (All Locations) [167] Which type of service does your patient need treatment for? Musculo-Skeletal Rehabilitation What type of treatment does this patient need? Chronic orthopedic pain which does not require surgery or pain management # of visits: 1 Comments intercostal brachial nerve irritation Rt side, eval for treatment options and possible injection Encounter Details Date Type Department Care Team (Late st Contact Info) Description 05/21/2025 Orders Only [facility] Orthopaedic Surgery [facility] [facility] [address] [place] [address] [place] [address] Rosalino Ang MD [address] [facility] [place] [address] Right shoulder pain, unspecified chronicity (Primary Dx) Social History Tobacco Use Types Packs/Day Years Used Date Smoking Tobacco: Former Cigarettes 0.5 42 1 983 - 09/25/2024 Smokeless Tobacco: Never Comments:always trying to qu it Alcohol Use Standard Drinks/Week Comments Yes 6 (1 standard drink = 0.6 oz pure alcohol) 6 drinks per week / mixed drink [facility] Utilities Answer Date Recorded In the past 12 months has [employer], gas, oil, or water [employer] threatened to shut off services in your home? No 09/30/2024 Social Connection and Isolation Panel Answer Date Recorded In a typical week, how many times do you talk on the phone with family, friends, or neighbors? Three times a week 09/30/20 How often do you get togethe r with friends or relatives? Three times a week 09/30/2024 How often do you attend chur ch or nondenominational services? 1 to 4 times per year 09/30/2024 Active Member of Clubs or Organizations Not on f ile 09/30/2024 How often do you attend meet ings of the clubs or organizations you belong to? 1 to 4 times per year 09/30/2024 Are you , , di vorced, , never , or living with a partner? 09/30/2024 AUDIT-C Answer Date Recorded Q1: How often do you have a drink containing alc ohol? 2-4 times a month 09/29/2024 Q2: How many drinks containi ng alcohol do you have on a typical day when you are drinking? 1 or 2 09/29/2024 Q3: How often do you have si x or more drinks on one occasion? Never 09/29/2024 Overall Financial Resource Strain (CARDIA) Answe r Date Recorded How hard is it for you to pa y for the very basics like food, housing, medical care, and heating? Not hard at all 09/30/2024 Hunger Vital Sign Answer Date Recorded Within the past 12 months, y ou worried that your food would run out before you got the money to buy more. Never true 09/30/20 24 Within the past 12 months, t he food you bought just didn't last and you didn't have money to get more. Never true 09/30/2024 PRAPARE - Transportation Answer Date Re corded In the past 12 months, has l ack of transportation kept you from medical appointments or from getting medications? No 09/09 In the past 12 months, has l ack of transportation kept you from meetings, work, or from getting things needed for daily living? No 09/30/2024 Housing Stability Vital Sign Answer Indra e Recorded In the last 12 months, was t here a time when you were not able to pay the mortgage or rent on time? No 09/30/2024 In the past 12 months, how m any times have you moved where you were living? 0 09/30/2024 At any time in the past 12 m [facility], were you homeless or living in a [facility] (including now)? No 09/30/2024 Personal Safety Answer Date Recorded Have you ever been in or are you currently in a harmful physical or emotional relationship or is someone making you feel afraid or unsafe? 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 Gender Identity Not on file Sexual Orientation Straight 01/12/2021 8: 11 PM CDT documented as of this encounter Plan of Treatment Scheduled Referrals Name Type Priority Associated Diagnoses Orde r Schedule Ambulatory referral to Physical Medicine Rehab Outpatient Referral Routine Right shoulder pain, unspecified chronicity Expected: 05/22/2025 (Approximate), Expires: 05/21/2026 documented as of this encounter Visit Diagnoses Diagnosis Right shoulder pain, unspecified chronicity- Primary documented in this encounter Care Teams Bag Adjuster Relationship Specialty Start Date End Date Josefa Parry DO PCP - General Family Medicine 11/17/22 Suzette Ford MD Consulting Physician Pulmonary Disease 10/02/24 documented as of this encounter
--- OUTSIDE RECORDS SUMMARY | 2025-05-23 07:08 | XMS_ITS | Clinical Summary ---
Author Organization [facility] Address [address] [address] Care Team Providers Care Computer Service Technician Name Role Phone Unavailable Primary Care Provider Unavailabl e Source Comments [facility],non-owned Affiliates and Associated Physician Practices is amultiple site organization consisting of ambulatory clinics and hospital sitesin [place], [place], [place] and [place]. This disclosure is being madepursuant to the Care Everywhere program and may not contain all information available regarding this patient. Last updated 18.[facility] Social History Tobacco Use Types Packs/Day Years Used Date Smoking Tobacco: Never Assessed Sex and Gender Information Value Date Recorded Sex Assigned at Not on file Legal Sex Male 11:10 AM CDT Gender Identity Not on file Sexual Orientation Not on file Plan of Treatment Health Maintenance Due Date Last Done Comments COLOGUARD (AGES 45-75) - COL ON CA SCREENING 1964 COLON MONITORING 1964 COLONOSCOPY - COLON CA SCREENING 1964 CT COLONOGRAPHY - COLON CA SCREENING 1964 Colorectal Cancer Screening 1964 FIT - COLON CA SCREENING 1964 FLEX SIG - COLON CA SCREENING 1964 LIPID TESTING 1964 HIV SCREENING 1979 HEPATITIS C SCREENING 08/21/1982 DTAP/TDAP/TD VACCINES (1 - Tdap) 1983 PNEUMOCOCCAL VACCINE 50+ (1 of 1 - PCV) 2014 ZOSTER VACCINE (1 of 2) 2014 COVID-19 VACCINE ( - 2023-2 5 season) 2024 DEPRESSION SCREENING 10/09/2024 INFLUENZA VACCINE (#1) 2025 Respiratory Syncytial Virus (RSV) Vaccine Pt: or over 60 yrs (1 - 1-dose 75+ series) 2039 HEPATITIS B VACCINE Aged Out No longe r eligible based on patient's age to complete this topic HIB VACCINE Aged Out No longer eligi ble based on patient's age to complete this topic HPV VACCINE Aged Out No longer eligi ble based on patient's age to complete this topic MENINGOCOCCAL (Group B) VACC INE SHARED DECISION-MAKING Aged Out No longer eligibl e based on patient's age to complete this topic MENINGOCOCCAL GROUPS A/C/Y/W VACCINE Aged Out No longer eligible b ased on patient's age to complete this topic
--- OUTSIDE RECORDS SUMMARY | 2025-05-23 07:08 | XMS_ITS | Continuity of Care Document ---
Author Organization [facility] Address [address] [place] [address] Phone Care Team Providers Care Ross Lift Operator Name Role Phone [facility] Unavailable Unavail able Annie Peacock Unavailable Unavailable Advance Directives Directive Yes / No Effective Date File Name No Information Encounters Encounter Description Practice Location Reason(s) For Visit Diagnoses Date Provider Providers Copied on Encounter [facility], [address], [place], [place], [id number], [place] tel:[phone] [facility] No Information [address] [facility], [address], [place], [place], [id number] , [place]. tel:[phone] Consulting Provider: Annie Peacock, [address] [place] [address], [address]. tel:[phone] Family History Family Member Type Diagnosis Age At Onset No Information Payers Payer name Insurance type Covered republican ID Authoriza tion(s) No Information Social History Type Description Quantity Date Captured Comments Sex Male Smoking Status No Information Chief Complaint And Reason For Visit No [...]
--- OUTSIDE RECORDS SUMMARY | 2025-05-23 07:08 | XMS_ITS | Continuity of Care Document ---
Author Organization [facility] Address [address] [place] [address] Phone Care Team Providers Care It Security Specialist Name Role Phone Jay CERDA, Arben Unavailable Unavailable Advance Directives Directive Yes / No Effective Date File Name No Information Encounters Encounter Description Practice Location Reason(s) For Visit Diagnoses Date Provider Providers Copied on Encounter [employer] [address], [place], [place], [id number], [place] tel:[phone] [facility] No Information Jay Theodore. [address], [place], [place], [address], [place]. tel:[phone] Referring Provider: Florentin Paula, [address], [place], [address]. tel:[phone] Family History Family Member Type Diagnosis Age At Onset No Information Payers Payer name Insurance type Covered republican ID Authoriza tion(s) [facility] [id number] Social History Type Description Quantity Date Captured [...]
--- OUTSIDE RECORDS SUMMARY | 2025-05-23 07:08 | XMS_ITS | Clinical Summary ---
Author Organization [facility] Address [facility] [place] [address] Care Team Providers Care Medical Claims Analyst Name Role Phone Josefa Parry Primary Care Provider [phone] Suzette Ford MD Unavailable [phone] Allergies No known active allergies Medications ALPRAZolam (XANAX) 0.5 mg tabletIndications: anxiety Take 1 tablet (0.5 mg total) by mouth 3 (three) times a day as needed for anxiety 08/05/20 20 Active ezetimibe (ZETIA) 10 mg tabletIndications: hyperlipidemia Take 1 tablet (10 mg total) by mouth nightly Active PARoxetine (PAXIL) 40 mg tabletIndications: Anxiety with Depression Take 1.5 tablets (60 mg total) by mouth nightly Active simvastatin (ZOCOR) 40 mg tabletIndications: hyperlipidemia Take 1 tablet (40 mg total) by mouth nightly Active icosapent ethyL (VASCEPA) 1 gram capsuleIndications :Mixed hyperlipidemia TAKE 2 CAPSULES BY MOUTH TWICE A DAY 360 capsule 3 04/29/20 24 Active aspirin 81 mg enteric coated tabletIndications: Coronary artery calcification Take 1 tablet (81 mg total) by mouth daily Resume only WHEN Ok'd by PCP or Pulmonology 10/10/19 25 026 Active buPROPion XL (WELLBUTRIN XL) 150 mg 24 hr tablet TAKE 1 TABLET BY MOUTH EVERY DAY IN THE MORNING FOR 90 DAYS 01/24/20 25 Active losartan (COZAAR) 50 mg tablet Take 1 tablet (50 mg total) by mouth daily 02/28/20 25 Active tadalafiL (ADCIRCA) 10 mg tablet TAKE 1 TO 2 TABLETS BY MOUTH NEEDED 30 MINUTES BEFORE SEXUAL ACTIVITY, MAXIMUM 2 TABS/24 HOURS 03/10/20 25 Active Active Problems Problem Noted Date Diagnosed Date History of hemoptysis 10/11/2024 Chronic bronchitis 10/10/2024 History of community acquired pneumonia 10/10/19 Allergic rhinitis 10/10/2024 History of nicotine dependence 10/10/2024 Obstructive sleep apnea 10/10/2024 Cough with hemoptysis 09/29/2024 Tobacco abuse 09/29/2024 Aneurysm of ascending aorta without rupture 09/09 Encounter for postoperative wound check 02/29/20 Cervical stenosis of spine 02/07/2022 Vitamin D deficiency 02/03/2022 Prophylactic antibiotic 12/23/2021 Pseudoarthrosis of cervical spine 12/15/2021 S/P cervical spinal fusion 09/27/2021 Coronary artery disease invo lving [place] coronary artery of [place] heart without angina pectoris 05/17/2021 Mixed hyperlipidemia 05/17/2021 Tobacco abuse counseling 05/17/2021 Disorder of coccyx 04/23/2021 Lumbosacral spondylosis without myelopathy 04/23 Traumatic tear of right rotator cuff 09/14/2020 Overview (09/14/2020): Added automatically from request for surgery [id number] Hand pain, right 08/10/2020 Osteoarthritis of right hand 08/10/2020 Overview (08/10/2020): Added automatically from request for surgery [id number] Encounters Date Type Department Care Team Description 05/21/2025 Orders Only [facility] Orth[facility] [address] [place] [address] [address]th [place] [address] [place] [address] Rosalino Ang MD Right shoulder pain, unspecified chronicity (Primary Dx) 05/21/2025 Telephone [facility] [address] [place] [address] 12th [place] [address] [place] [address] Rosalino Ang MD 04/01/2025 7:50 AM CDT Office Visit [facility] [address] [facility] 6th [place] [address] [place] [address] Arben Paiz MD S/P cervical spinal fusion (Primary Dx); Fusion of spine of thoracolumbar region 04/01/2025 7:20 AM CDT - 04/01/2025 11:59 PM CDT Hospital Encounter [facility] [address] [place] [address] S/P cervical spinal fusion; Fusion of spine of thoracolumbar region Discharge Disposition: Discharge to home or self care 03/01/2025 8:01 AM CDT - 03/01/2025 11:59 PM CDT Hospital Encounter [facility] ([facility] [address] [place] [address] Arben Paiz MD S/P cervical spinal fusion Discharge Disposition: Discharge to home or self care from Last 3 Months Immunizations Immunization Administration Dates Next Due Influenza, Quadrivalent, Rec ombinant, Egg Free, Preservative Free, Intramuscular 08/01/2020,08/22/2018 Surgical History Surgery Date Site/Laterality Comments ROTATOR CUFF REPAIR 10/09/2004 - 10/08/2005 Right CERVICAL FUSION 06/18/2020 Revised February 2022 COLONOSCOPY 10/09/2014 - 10/08/2015 MOHS SURGERY 10/09/2003 - 10/08/2004 hands HAND SURGERY 09/11/2020 Right POSTERIOR FUSION CERVICAL SPINE 02/07/2022 C4-C7 KNEE ARTHROSCOPY W/ LATERAL RELEASE September 2020 SPINE SURGERY June 2020 Medical History Medical History Date Comments Hx Other Medical high cholestero l Back pain Wears glasses Depression Anxiety Skin cancer ((Pt Qnr Sub: sk in)) Sleep apnea uses CPAP Hyperlipidemia Arthritis 15 years Kidney stone Family History Medical History Relation Name Comments Heart attack Father Father Lung cancer Father Father Alzheimer's disease Mother Mother Depression Mother Mother Cancer Other 1 Family history of cancer; Heart disease Other 2 Family history of heart problems; Anesthesia problems Neg Hx Relation Name Status Comments Father Father (Age 82) Mother Mother (Age 84) Other 1 Other 2 Social History Tobacco Use Types Packs/Day Years Used Date Smoking Tobacco: Former Cigarettes 0.5 42 1 983 - 09/25/2024 Smokeless Tobacco: Never Tobacco Cessation:Counseling Given: Not Answered Comments:always trying to quit Alcohol Use Standard Drinks/Week Comments Yes 6 (1 standard drink = 0.6 oz pure alcohol) 6 drinks per week / mixed drink [facility] Utilities Answer Date Recorded In the past 12 months has th e electric, gas, oil, or water company threatened to shut off services in your [...] often do you attend chur ch or cheondoism services? 1 to 4 times per year [...] any time in the past 12 m [facility], were you homeless or living in a custodial (including now)? No 09/30/2024 Personal Safety Answer Date Recorded Have you ever been in or are you currently in a harmful physical or emotional relationship or is someone making you feel afraid or unsafe? 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 Gender Identity Not on file Sexual Orientation Straight 01/12/2021 8: 11 PM CDT Obstetrics History Last Filed Vital Signs Vital Sign Reading Time Taken Comments Blood Pressure 131/88 01/09/2025 10:15 AM CDT Pulse 64 01/09/2025 10:15 AM CDT Temperature 36.3 C (97.4 F) 01/09/2025 10:15 AM CDT Respiratory Rate 18 01/09/2025 10:15 AM CDT Oxygen Saturation 97% 01/09/2025 10:15 AM CDT Inhaled Oxygen Concentration - - Weight 95.3 kg (210 lb) 04/01/2025 7:50 AM CDT Height 179.1 cm (5' 10.5) 04/01/2025 7:50 AM CD T Body Mass Index 29.71 04/01/2025 7:50 AM CDT Plan of Treatment Health Maintenance Due Date Last Done Comments Colon Cancer Screening-Colonoscopy 1964 Depression Screening 1964 Hepatitis C Screening 1964 Prostate Cancer Screening-PSA 1964 Hepatitis B Screening 1982 Regular Well Visit/Exam 18-64 1982 Pneumococcal vaccine <65 (1 of 2 - PCV) 1983 Lung Cancer Screening 2014 Zoster Vaccine (1 of 2) 2014 Covid-19 Vaccine ( - season) 2024 08/30/2021, 01/05/2021, 12/15/2020 Influenza Vaccine (#1) 2025 , 08/01/2020, 08/22/2018 DTaP/Tdap/Td Vaccine (2 - Td or Tdap) 04/21/2031 Medical Devices Implanted Type Area Riprap Worker Device Identifier Shelf Expiration Date Model / Serial / Lot Allosource Crushed Chip Frozen Graft 30ml Bone Cancellous [id number] - S. - [id number] Implanted:Qt y: 1 on 02/07/2022 by Arben Paiz MD at [facility] Bone N/A: Spine Cervical Allosource [id number] 04/26/2025 [id number] / . / [id number] Bmp Infuse Sm [id number] - S. - [id number] Implanted:Qt y: 1 on 02/07/2022 by Arben Paiz MD at [facility] Graft N/A: Spine Cervical Medtronic Inc [id number] 02/06/2023 [id number] / . / [id number] Depuy Synthes Spine [id number] Bone Graft Filler Putty Gps 4cc Fibergraft - S. - [id number] Implanted:Qt y: 1 on 02/07/2022 by Arben Paiz MD at [facility] Graft N/A: Spine Cervical Depuy Synthes Spine 07/01/2023 [id number] / . / [id number] Depuy Synthes Spine [id number] 4mm 50mm Lordosis Tyrel Spinal Titanium - S. - [id number] Implanted:Qt y: 2 on 02/07/2022 by Arben Paiz MD at [facility] Other - see comments N/A: Spine Cervical Depuy Synthes Spine [id number] / . / Depuy Synthes Spine [id number] 3.5mm 14mm Ply Spine Screw Bone Nonsterile 4mm Tyrel - S. - [id number] Implanted:Qt y: 4 on 02/07/2022 by Arben Paiz MD at [facility] Screw N/A: Spine Cervical Depuy Synthes Spine [id number] / . / Depuy Synthes Spine [id number] 4.5mm 24mm Ply Spine Pedicle Screw Bone Nonsterile 4mm Tyrel - S. - [id number] Implanted:Qt y: 2 on 02/07/2022 by Arben Paiz MD at [facility] Screw N/A: Spine Cervical Depuy Synthes Spine [id number] / . / Depuy Synthes Spine [id number] Lock Cap Spine T15 Standard Screw Set Titanium Nonsterile - S. - [id number] Implanted:Qt y: 6 on 02/07/2022 by Arben Paiz MD at [facility] Screw N/A: Spine Cervical Depuy Synthes Spine [id number] / . / Arthrex Inc [id number]-3670 Set Implant Arthrex Fibertak Biceps Sterile Latex Free - [id number] Implanted:Qt y: 1 on 09/29/2020 by Gibran Wilson MD at [facility] Arthrex Inc 07/08/2025 [id number] / / Arthrex Inc Ar-2324 Bcm Swivelock 4.75mm 24.5mm Self Punch Vent Shoulder [place] Suture - [id number] Implanted:Qt y: 1 on 09/29/2020 by Gibran Wilson MD at [facility] Arthrex Inc [id number] 06/08/2024 [id number] / / Procedures Procedure Name Priority Date/Time Associated Diagnosis Comments XR SCOLIOSIS 6 OR MORE VIEWS Schedule Routine, Read Routine (OP Routine) 04/01/2025 7:37 AM CDT S/P cervical spinal fusion Fusion of spine of thoracolumbar region MRI SPINE CERVICAL THORACIC WO CONTRAST Schedule Routine, Read Routine (OP Routine) 03/01/2025 8:58 AM CDT S/P cervical spinal fusion from Last 3 Months Results * XR Scoliosis 6 or More Views (04/01/2025 7:37 AM CDT) Anatomical Region Laterality Modality Spine N/A Computed Radiogr aphy 04/01/2025 8:58 AM CDT Impressions 04/01/2025 8:58 AM CDT 1. Unchanged posterior and anterior fusion of C4-C7. 2. Unchanged mild left superior pelvic obliquity. Electronically signed by: Issa Butler M.D. Narrative 04/01/2025 8:58 AM CDT EXAMINATION: XR SCOLIOSIS 6 OR MORE VIEWS HISTORY: Spinal fusion follow-up COMPARISON: 02/13/2024 scoliosis radiographs and 03/01/2025 cervical spine MRI FINDINGS: There is no evidence of coronal imbalance. Mild left superior pelvic obliquity. Long segment dextrocurvature of the thoracic spine. No evidence of significant sagittal imbalance. Postsurgical changes are again seen from combined anterior and posterior fusion of C4-C7. Instrumentation is intact. No motion of the fused segments with flexion or extension. No significant spondylolisthesis. Moderate degenerative disc disease at C3-C4. No acute fracture or prevertebral soft tissue swelling. Atherosclerotic calcifications in the left carotid artery. Procedure Note Issa Butler MD - 04/01/2025 EXAMINATION: XR SCOLIOSIS 6 OR MORE VIEWS HISTORY: Spinal fusion follow-up COMPARISON: 02/13/2024 scoliosis radiographs and 03/01/2025 cervical spine MRI FINDINGS: There is no evidence of coronal imbalance. Mild left superior pelvic obliquity. Long segment dextrocurvature of the thoracic spine. No evidence of significant sagittal imbalance. Postsurgical changes are again seen from combined anterior and posterior fusion of C4-C7. Instrumentation is intact. No motion of the fused segments with flexion or extension. No significant spondylolisthesis. Moderate degenerative disc disease at C3-C4. No acute fracture or prevertebral soft tissue swelling. Atherosclerotic calcifications in the left carotid artery. IMPRESSION: 1. Unchanged posterior and anterior fusion of C4-C7. 2. Unchanged mild left superior pelvic obliquity. Electronically signed by: Issa Butler M.D. us Arben Paiz MD IMG XR PROCEDURES Fi nal Result * MRI Spine Cervical and Thoracic WO Contrast (03/01/2025 8:58 AM CDT) Anatomical Region Laterality Modality Spine N/A Magnetic Resonan ce 03/01/2025 10:0 2 AM CDT Impressions 03/01/2025 10:08 AM CDT 1. Postsurgical changes of combined anterior and posterior instrumented fusion from C4 through C7. 2. Multilevel degenerative changes of the cervical spine as detailed above, not significantly progressed since prior MRI 10/18/2021. No high-grade spinal canal stenosis or neuroforaminal narrowing. 3. Mild degenerative changes of the thoracic spine as described above. No high-grade spinal canal stenosis or neuroforaminal narrowing. Dictated by: Helen Wilcox M.D. The radiology attending physician has personally reviewed this study, and had reviewed and/or edited this written report and agrees with it. Electronically signed by: Zakia Bronson MD Narrative 03/01/2025 10:08 AM CDT EXAMINATION: 1. Magnetic resonance imaging (MRI) of the cervical spine without contrast 2. Magnetic resonance imaging (MRI) of the thoracic spine without contrast HISTORY: 59 years-old Male with s/p cervical fusion. TECHNIQUE: Multiplanar multi-weighted MRI of the cervical spine was performed without intravenous contrast using the standard protocol. Multiplanar multi-weighted MRI of the thoracic spine was performed without intravenous contrast using the standard protocol. COMPARISON: MRI cervical spine and CT cervical and thoracic spine 10/18/2021 FINDINGS: CERVICAL SPINE: Postsurgical changes of combined posterior instrumented fusion and cervical discectomy and anterior instrumented fusion from C4 through C7. Small subcutaneous fluid collection is noted at T1 level. 2 mm anterior subluxation C2 on C3. No acute fracture is identified. Mild degenerative pannus of the dens without significant narrowing of the craniocervical junction. The visualized portions of the skull base and the posterior fossa are normal. The spinal cord demonstrates normal signal intensity on all sequences. Disc desiccation and mild disc height loss in the non-surgical disc spaces. Normal signal voids are present in the vertebral arteries. There is a 1.3 x 0.8 cm T2 hyperintense cystic lesion in the dorsal subcutaneous soft tissues at the level of T1. C2-C3: The disk is normal in configuration. There is moderate right facet arthropathy. There is no uncovertebral joint disease. There is moderate right neuroforaminal stenosis. There is no spinal canal stenosis. C3-C4: There is a mild disc osteophyte complex. There is moderate bilateral facet arthropathy. There is mild right, moderate left uncovertebral joint disease. There is mild right, moderate left neuroforaminal stenosis. There is no spinal canal stenosis. C4-C5: There are changes of anterior discectomy. There is mild bilateral neuroforaminal stenosis. There is no spinal canal stenosis. C5-C6: There are changes of anterior discectomy. There is mild bilateral neuroforaminal stenosis. There is no spinal canal stenosis. C6-C7: There are changes of anterior discectomy. There is mild right, moderate left neuroforaminal stenosis. There is no spinal canal stenosis. C7-T1: The disk is normal in configuration. There is mild bilateral facet arthropathy. There is no uncovertebral joint disease. There is no neuroforaminal stenosis. There is no spinal canal stenosis. THORACIC SPINE: The alignment of the thoracic spine is normal. Scattered intervertebral osseous hemangiomas are seen. Modic type II degenerative endplate changes are seen, more appreciated at T7-T8. Otherwise, vertebral bodies demonstrate normal signal intensity on all sequences. There are no compression fractures. The spinal cord demonstrates normal signal intensity on all sequences. Multilevel disc desiccation and disc height loss throughout the thoracic spine. Limited views of the chest and abdomen show no soft tissue abnormality. The aorta is normal. Multilevel disc bulges/disc protrusion including T3-T4, T5-T6, T6-T7, T7-T8, T8-T9, T10-T11. There is no significant facet arthropathy. There is no signal neuroforaminal stenosis. There is no significant spinal canal stenosis. Procedure Note Zakia Bronson MD PhD - 03/01/2025 EXAMINATION: 1. Magnetic resonance imaging (MRI) of the cervical spine without contrast 2. Magnetic resonance imaging (MRI) of the thoracic spine without contrast HISTORY: 59 years-old Male with s/p cervical fusion. TECHNIQUE: Multiplanar multi-weighted MRI of the cervical spine was performed without intravenous contrast using the standard protocol. Multiplanar multi-weighted MRI of the thoracic spine was performed without intravenous contrast using the standard protocol. COMPARISON: MRI cervical spine and CT cervical and thoracic spine 10/18/2021 FINDINGS: CERVICAL SPINE: Postsurgical changes of combined posterior instrumented fusion and cervical discectomy and anterior instrumented fusion from C4 through C7. Small subcutaneous fluid collection is noted at T1 level. 2 mm anterior subluxation C2 on C3. No acute fracture is identified. Mild degenerative pannus of the dens without significant narrowing of the craniocervical junction. The visualized portions of the skull base and the posterior fossa are normal. The spinal cord demonstrates normal signal intensity on all sequences. Disc desiccation and mild disc height loss in the non-surgical disc spaces. Normal signal voids are present in the vertebral arteries. There is a 1.3 x 0.8 cm T2 hyperintense cystic lesion in the dorsal subcutaneous soft tissues at the level of T1. C2-C3: The disk is normal in configuration. There is moderate right facet arthropathy. There is no uncovertebral joint disease. There is moderate right neuroforaminal stenosis. There is no spinal canal stenosis. C3-C4: There is a mild disc osteophyte complex. There is moderate bilateral facet arthropathy. There is mild right, moderate left uncovertebral joint disease. There is mild right, moderate left neuroforaminal stenosis. There is no spinal canal stenosis. C4-C5: There are changes of anterior discectomy. There is mild bilateral neuroforaminal stenosis. There is no spinal canal stenosis. C5-C6: There are changes of anterior discectomy. There is mild bilateral neuroforaminal stenosis. There is no spinal canal stenosis. C6-C7: There are changes of anterior discectomy. There is mild right, moderate left neuroforaminal stenosis. There is no spinal canal stenosis. C7-T1: The disk is normal in configuration. There is mild bilateral facet arthropathy. There is no uncovertebral joint disease. There is no neuroforaminal stenosis. There is no spinal canal stenosis. THORACIC SPINE: The alignment of the thoracic spine is normal. Scattered intervertebral osseous hemangiomas are seen. Modic type II degenerative endplate changes are seen, more appreciated at T7-T8. Otherwise, vertebral bodies demonstrate normal signal intensity on all sequences. There are no compression fractures. The spinal cord demonstrates normal signal intensity on all sequences. Multilevel disc desiccation and disc height loss throughout the thoracic spine. Limited views of the chest and abdomen show no soft tissue abnormality. The aorta is normal. Multilevel disc bulges/disc protrusion including T3-T4, T5-T6, T6-T7, T7-T8, T8-T9, T10-T11. There is no significant facet arthropathy. There is no signal neuroforaminal stenosis. There is no significant spinal canal stenosis. IMPRESSION: 1. Postsurgical changes of combined anterior and posterior instrumented fusion from C4 through C7. 2. Multilevel degenerative changes of the cervical spine as detailed above, not significantly progressed since prior MRI 10/18/2021. No high-grade spinal canal stenosis or neuroforaminal narrowing. 3. Mild degenerative changes of the thoracic spine as described above. No high-grade spinal canal stenosis or neuroforaminal narrowing. Dictated by: Helen Wilcox M.D. The radiology attending physician has personally reviewed this study, and had reviewed and/or edited this written report and agrees with it. Electronically signed by: Zakia Bronson MD us Arben Paiz MD IMG MRI PROCEDURES F inal Result from Last 3 Months Insurance [facility] [employer] ADVANTAGE CHOICE PPO [employer] PPO Advance Directives For more information, please contact: [phone] * Full Code (Latest Code Status on File) Date Activated Date Inactivated Comments 09/29/2024 3:47 PM 10/02/2024 4:22 PM * Full Code Date Activated Date Inactivated Comments 02/07/2022 6:44 PM 02/08/2022 10:59 PM Care Teams Medical Claims Analyst Relationship Specialty Start Date End Date Josefa Parry DO PCP - General Family Medicine 11/17/22 Suzette Ford MD Consulting Physician Pulmonary Disease 10/02/24
== END 2025-05-23 07:04 | disposition home or self-care (01) ==
PROVIDERS: PCP Family Medicine; Visit Provider Family Medicine
DX: Z12.2 Encounter for screening for malignant neoplasm of respiratory organs (principal); Z87.891 Personal history of nicotine dependence
CPT/HCPCS: 71271

== ENCOUNTER 2025-09-03 00:59 | Day surgery (SDC) | payer OTHER, SELFPAY ==
--- OUTSIDE RECORDS SUMMARY | 2025-09-03 01:02 | XMS_ITS | Clinical Summary ---
Author Organization [facility] Address [facility] [place] [address] Care Team Providers Care Field Service Supervisor Name Role Phone Josefa Parry DO Primary Care Provider [phone] Suzette Ford MD Unavailable [phone] Allergies Active Allergy Reactions Criticality Noted Date Comments Niacin Flushing (skin),Unknown Low 10/21/2024 Medications ALPRAZolam (XANAX) 0.5 mg tabletIndications: anxiety [...] MAXIMUM 2 TABS/24 HOURS 03/10/20 25 Active traMADoL (ULTRAM) 50 mg tablet Take 1 tablet (50 mg total) by mouth every 6 (six) hours as needed for pain for up to 7 days 40 tablet 06/03/20 25 Active pregabalin (LYRICA) 75 mg capsuleIndications :Neuropathic Pain Associated with Spinal Cord Injury Take 1 capsule (75 mg total) by mouth nightly 30 capsule 06/27/20 25 Active traZODone (DESYREL) 50 mg tablet 1 TABLET AT BEDTIME ORAL ONCE A DAY NEEDED 04/30/20 25 Active tamsulosin (FLOMAX) 0.4 mg extended release capsule Take by mouth daily 07/29/20 25 Active ergocalciferol (VITAMIN D) 50,000 unit capsule Take 1 capsule (50,000 Units total) by mouth once a week 07/29/20 25 Active gabapentin (NEURONTIN) 100 mg capsule Take by mouth 3 (three) times a day 06/03/20 25 Active Active Problems Problem Noted Date Diagnosed Date AAA (abdominal aortic aneurysm) 08/05/2025 Acute sinusitis 08/05/2025 Allergic rhinitis due to animal dander Dislocation, shoulder closed 08/05/2025 Dog bite 08/05/2025 Elevated fasting glucose 08/05/2025 Generalized anxiety disorder 08/05/2025 Hypertension 08/05/2025 Infection of sebaceous gland 08/05/2025 Lung nodule 08/05/2025 Obesity 08/05/2025 Nicotine dependence, unspecified, uncomplicated 08/05/2025 Major depression in remission 08/05/2025 Mass on back 08/05/2025 Mononeuropathy 08/05/2025 Old myocardial infarct 08/05/2025 Overview (08/05/2025): Sees Dr Ferguson Prediabetes 08/05/2025 Rotator cuff tear 08/05/2025 History of hemoptysis 10/11/2024 Chronic bronchitis 10/10/2024 [...] fusion 09/27/2021 Coronary artery disease invo lving crow coronary artery of crow heart without angina pectoris 05/17/2021 Mixed hyperlipidemia 05/17/2021 Tobacco abuse counseling 05/17/2021 Disorder of coccyx 04/23/2021 Lumbosacral spondylosis without myelopathy 04/23 Traumatic tear of right rotator cuff 09/14/2020 Overview (09/14/2020): Added automatically from request for surgery [id number] Hand pain, right 08/10/2020 Osteoarthritis of right hand 08/10/2020 Overview (08/10/2020): Added automatically from request for surgery [id number] Encounters Date Type Department Care Team Description 08/20/2025 Orders Only [facility] [address] [facility] [address] [place] [address] Demetrius Mcdowell MD Paresthesia and pain of right extremity (Primary Dx); Brachial plexopathy 08/19/2025 Orders Only [facility] [address] [facility] [address] [place] [address] Demetrius Mcdowell MD 08/18/2025 [facility] [address] [facility] [address] [place] [address] Demetrius Mcdowell MD 08/05/2025 10:45 AM CDT Ancillary Procedure [facility] [address] [facility] [place] [address] Brachial plexopathy 08/05/2025 10:45 AM CDT Procedure visit [facility] [address] [place] [address] [place] [address] Ray Noriega MD Paresthesia and pain of right extremity (Primary Dx) 06/27/2025 9:00 AM CDT Office Visit [facility] [address] [facility] [address] [place] [address] Demetrius Mcdowell MD Brachial plexopathy (Primary Dx) from Last 3 Months Immunizations Immunization Administration [...] 6 drinks per week / mixed drink [facility] Utilities Answer Date Recorded In the past 12 months has [employer], gas, oil, or water [employer] threatened to shut off services in your [...] often do you attend chur ch or oriental orthodox services? 1 to 4 times per year [...] any time in the past 12 m [facility], were you homeless or living in a alf (including now)? No 09/30/2024 Personal Safety Answer Date Recorded Have you ever been in or are you currently in a harmful physical or emotional relationship or is someone making you feel afraid or unsafe? 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 Gender Identity Not on file Sexual Orientation Straight 01/12/2021 8: 11 PM CDT Last Filed Vital Signs Vital Sign Reading [...] - PCV) 1983 Lung Cancer Screening 2014 Covid-19 Vaccine (4 - 2024-2 6 season) 2025 08/30/2021, 01/05/2021, 12/15/2020 Influenza Vaccine (#1) 2025 , 06/24/2024, 07/12/2023, Additional history exists DTaP/Tdap/Td Vaccine (3 - Td or Tdap) 04/21/2031 04/21/2021, 11/04/2013, 05/09/2004 Zoster Vaccine Completed 09/11/2023, 03/10/2023 Medical Devices Implanted Type Area Emergency Preparedness Manager Device Identifier Shelf Expiration Date Model / Serial / Lot Allosource Crushed Chip Frozen Graft 30ml Bone Cancellous [id number] - S. - [id number] Implanted:Qt y: 1 on 02/07/2022 by Arben Paiz MD at [facility] Bone N/A: Spine Cervical Allosource [id number] 04/26/2025 [id number] / . / [id number] Bmp Infuse Sm [id number] - S. - [id number] Implanted:Qt y: 1 on 02/07/2022 by Arben Paiz MD at [facility] Graft N/A: Spine Cervical Medtronic Inc [id number] 02/06/2023 [id number] / . / [id number] Depuy Synthes Spine [id number] Bone Graft Filler Putty Gps 4cc Fibergraft - S. - [id number] Implanted:Qt y: 1 on 02/07/2022 by Arben Paiz MD at [facility] Graft N/A: Spine Cervical Depuy Synthes Spine 07/01/2023 [id number] / . / [id number] Depuy Synthes Spine [id number] 4mm 50mm Lordosis Tyrel Spinal Titanium - S. - [id number] Implanted:Qt y: 2 on 02/07/2022 by Arben Paiz MD at [facility] Other - see comments N/A: Spine Cervical Depuy Synthes Spine [id number] / . / Depuy Synthes Spine [id number] 3.5mm 14mm Ply Spine Screw Bone Nonsterile 4mm Tyrel - S. - [id number] Implanted:Qt y: 4 on 02/07/2022 by Arben Paiz MD at [facility] Screw N/A: Spine Cervical Depuy Synthes Spine [id number] / . / Depuy Synthes Spine [id number] 4.5mm 24mm Ply Spine Pedicle Screw Bone Nonsterile 4mm Tyrel - S. - [id number] Implanted:Qt y: 2 on 02/07/2022 by Arben Paiz MD at [facility] Screw N/A: Spine Cervical Depuy Synthes Spine [id number] / . / Depuy Synthes Spine [id number] Lock Cap Spine T15 Standard Screw Set Titanium Nonsterile - S. - [id number] Implanted:Qt y: 6 on 02/07/2022 by Arben Paiz MD at [facility] Screw N/A: Spine Cervical Depuy Synthes Spine [id number] / . / Arthrex Inc Ar-3670 Set Implant Arthrex Fibertak Biceps Sterile Latex Free - [id number] Implanted:Qt y: 1 on 09/29/2020 by Gibran Wilson MD at [facility] Arthrex Inc 07/08/2025 [id number] / / Arthrex Inc Ar-2324 Bcm Swivelock 4.75mm 24.5mm Self Punch Vent Shoulder Lilly Suture - [id number] Implanted:Qt y: 1 on 09/29/2020 by Gibran Wilson MD at [facility] [employer] Inc [id number] 06/08/2024 [id number] / / Procedures Procedure Name Priority Date/Time Associated Diagnosis Comments POCUS SOFT TISSUE OF THE UPPER OR LOWER EXTREMITY Schedule Routine, Read Routine (OP Routine) 08/05/2025 10:41 AM CDT Brachial plexopathy from Last 3 Months Results * POCUS Soft Tissue of the Upper or Lower Extremity (08/05/2025 10:41 AM CDT) Narrative [facility] - 08/05/2025 10:41 AM CDT This procedure was performed and interpreted by the provider. Please refer to the provider's procedure/OR operative note for results. us Ray Noriega MD POCUS ORDERABLES Final R esult [facility] from Last 3 Months Insurance [facility] [employer] PPO [employer] PPO Advance Directives For more information, please contact: [phone] * Full Code (Latest Code Status on File) Date Activated Date Inactivated Comments 09/29/2024 3:47 PM 10/02/2024 4:22 PM * Full Code Date Activated Date Inactivated Comments 02/07/2022 6:44 PM 02/08/2022 10:59 PM Care Teams Field Service Supervisor Relationship Specialty Start Date End Date Josefa Parry DO PCP - General Family Medicine 11/17/22 Suzette Ford MD Consulting Physician Pulmonary Disease 10/02/24
--- OUTSIDE RECORDS SUMMARY | 2025-09-03 01:02 | XMS_ITS | Patient Health Record ---
Author Organization [facility] Address [address] [facility] [address] [place] [address] Care Team Providers Care Heel Packer Name Role Phone RosalinoJosefa schuster DO Primary Care Provider Jerry Mishra Unavailable [phone] Allergies Allergen (clinical drug ingredient) Drug/Non Drug Allergy documented on EMR Reaction Allergy Type Onset Date Status niacin Niacin Unknown Drug Allergy Active Results Component Value Reference Range Notes UDT Reviewed date:12/26/2024 11:54:17 AM Interpretation: Performing Lab: Notes/Report: Amphetamine (AMP) NEG 0 - 1000 ng/ml Buprenorphine (BUP) NEG 0 - 10 ng/ml Oxazepam (BZO) POS 0 - 300 ng/ml Cocaine (ZORAIDA) NEG 0 - 300 ng/ml Methamphetamine (mAMP) NEG 0 - 300 ng/ml Methylenedioxymethamphetamine (MDMA) NEG 0 - 500 ng/ml Morphine (MOP) NEG 0 - 25 ng/ml Methadone (MTD) NEG 0 - 300 ng/ml Oxycodone (OXY) NEG 0 - 300 ng/ml THC POS 0 - 50 ng/ml x NEG 0 - 1000 ng/ml x NEG 0 - 1000 ng/ml x NEG 0 - 300 ng/ml x NEG 0 - 300 ng/ml x NEG 0 - 300 ng/ml Reason For Referral No Information Medications Medication SIG (Take, Route, Frequency, Duration) Notes Start Date End Date Status Aspirin 81 MG Tablet Delayed Release 1 tablet Orally Once a day Active Losartan Potassium 100 MG Tablet 1 tablet Orally Once a day Active Ezetimibe 10 MG Tablet 1 tablet Oral Onc e a day; Duration: 90 days Active ALPRAZolam 0.5 MG Tablet 1 tablet Oral Twice a day; Duration: 30 days As needed Active Icosapent Ethyl 1 GM Capsule 2 capsules with meals Oral Twice a day; Duration: 90 days Active Simvastatin 40 MG Tablet 1 tablet in the evening Oral Once a day; Duration: 90 days Active buPROPion HCl ER (XL) 150 MG Tablet Extended Release 24 Hour 1 tablet in the morning Orally Once a day; Duration: 90 days 06/25/2025 Active PARoxetine HCl 40 MG Tablet 1 tablet in the evening Oral Once a day; Duration: 90 days 06/25/2025 Active Social History Tobacco Use: Social History Observation Description Date Details (start date - stop date) Former Smoker 02/10/1983 - 09/25/2024 Sex Assigned At : Social History Observation Description Sex Assigned At Male Social History Miscellaneous: Social Info Question Answer Notes Safety issues: Are there any firearms in the house? Ye s Social History Social Info Question Answer Notes Household: Marital Status: Number of Adults in household: 3 Number of Children in Household: 0 Level of Education: Not Finished College Drug/Alcohol: Social Info Question Answer Notes AUDIT-C (Standard) Did you have a drink containing alcohol in the past year? Yes How many drinks did you have on a typical day when you were drinking in the past year? 3 or 4 drinks (1 point) How often did you have a drink containing alcohol in the past year? 2 to 4 times a month (2 points) Tobacco Use: Social Info Question Answer Notes Tobacco Control (Standard) When did you start smoking? 02/10/1983 When did you stop smoking? 09/25/2024 How long has it been since you last smoked? 6-12 months Tobacco use: Former smoker Additional Details Category Social Info Options Details Miscellaneous: Occupation: Retired Elect rician Drug/Alcohol: Do you smoke marijuana? Adm its Do you drink alcohol? Yes, not v lin much Problems Problem Type SNOMED Code ICD Code Onset Dates Problem Status W/U Status Risk Notes Problem Generalized anxiety disorder (94275718) Generalized anxiety disorder (F41.1) Active confirmed Problem Mononeuropathy (574762023) Mononeuropathy, unspecified (G58.9) Active confirmed Problem Major depression in remission (21287894) Major depression in remission (F32.5) Active confirmed Problem Mixed hyperlipidemia (031507959) Mixed hyperlipidemia (E78.2) 05/17/20 21 Active confirmed Problem Obstructive sleep apnea (49991755) Obstructive sleep apnea (G47.33) 10/10/19 25 Active confirmed Problem Spinal stenosis in cervical region (36611952) Cervical stenosis of spine (M48.02) 02/08/20 22 Active confirmed Problem History of arthrodesis (321561267) S/P cervical spinal fusion (Z98.1) 09/27/20 21 Active confirmed Vital Signs Heart Rate 62 /min 06/25/2025 Height-cm 177.8 cm 06/25/2025 Blood pressure diastolic 80 mm Hg 06/25/2025 Weight-kg 96.62 kg 06/25/2025 Height 70 in 06/25/2025 Blood pressure systolic 127 mm Hg 06/25/2025 Weight 213 lbs 06/25/2025 BMI 30.56 kg/m2 06/25/2025 Encounters Encounter Location Date Provider Diagnosis [facility] [place] [id number] [facility] [address] [facility] [address] [place] [address] 12/26/2024 Jerry Bain Major depression in remission F32.5 ; Generalized anxiety disorder F41.1 ; Encounter for screening for cardiovascular disorders Z13.6 ; Obstructive sleep apnea G47.33 ; Cervical stenosis of spine M48.02 ; S/P cervical spinal fusion Z98.1 ; Mixed hyperlipidemia E78.2 ; Dietary counseling and surveillance Z71.3 ; Benign essential HTN I10 and Encounter for screening for depression Z13.31 [facility] [address] [address] 01/23/2025 Jerry Bain Major depression in remission F32.5 ; Generalized anxiety disorder F41.1 ; Obstructive sleep apnea G47.33 ; Mixed hyperlipidemia E78.2 ; Benign essential HTN I10 ; Encounter for screening for cardiovascular disorders Z13.6 and Encounter for screening for depression Z13.31 [facility] [address] [facility] [address] [place] [address] 02/20/2025 Jerry Bain Generalized anxiety disorder F41.1 ; Major depression in remission F32.5 ; Obstructive sleep apnea G47.33 ; Benign essential HTN I10 ; Negative depression screening Z13.31 and Encounter for screening for cardiovascular disorders Z13.6 [facility] [address] [facility] [address] [place] [address] 04/30/2025 Jerry Bain Generalized anxiety disorder F41.1 ; Major depression in remission F32.5 ; Obstructive sleep apnea G47.33 and Benign essential HTN I10 [facility] [address] [place] [address] [place] [address] 06/25/2025 Jerry Bain Generalized anxiety disorder F41.1 ; Major depression in remission F32.5 ; Obstructive sleep apnea G47.33 and Mononeuropathy, unspecified G58.9 [facility] [address] [place] [address] [place] [address] 04/21/2025 Jerry Bain Major depression in remission F32.5 [facility] [place] [address] [place] [address] [place] [address] 05/13/2025 Jerry Bain Assessments Encounter Date Diagnosis (ICD Code) Assessment Notes Treatment Notes Treatment Clinical Notes Section Notes 12/26/2024 Major depression in remission (ICD-10 - F32.5) 01/23/2025 Generalized anxiety disorder (ICD-10 - F41.1) 01/23/2025 Major depression in remission (ICD-10 - F32.5) 02/20/2025 Generalized anxiety disorder (ICD-10 - F41.1) 02/20/2025 Major depression in remission (ICD-10 - F32.5) 04/21/2025 Major depression in remission (ICD-10 - F32.5) 04/30/2025 Generalized anxiety disorder (ICD-10 - F41.1) 06/25/2025 Generalized anxiety disorder (ICD-10 - F41.1) 06/25/2025 Major depression in remission (ICD-10 - F32.5) Patient's major depressive disorder remains in remission. He continues Paxil 40 mg and bupropion 150 mg as maintenance therapy. Trazodone has been discontinued. - Continue Paxil 40 mg as prescribed. - Continue bupropion 150 mg as prescribed. - Discontinue trazodone. 06/25/2025 Obstructive sleep apnea (ICD-10 - G47.33) Patient reports difficulty sleeping, which improves with Xanax before bed. 04/30/2025 Major depression in remission (ICD-10 - F32.5) 02/20/2025 Obstructive sleep apnea (ICD-10 - G47.33) 01/23/2025 Obstructive sleep apnea (ICD-10 - G47.33) 12/26/2024 Generalized anxiety disorder (ICD-10 - F41.1) 12/26/2024 Encounter for screening for cardiovascular disorders (ICD-10 - Z13.6) 01/23/2025 Mixed hyperlipidemia (ICD-10 - E78.2) 02/20/2025 Benign essential HTN (ICD-10 - I10) 04/30/2025 Obstructive sleep apnea (ICD-10 - G47.33) Longstanding history of obstructive sleep apnea. Uses CPAP every night for 20 years. CPAP machine typically records 5-6 hours of sleep per night. No issues with CPAP keeping him awake. Patient reports persistent trouble falling asleep, sometimes taking hours or being unable to sleep at all. Denies significant mind racing at bedtime. Occasionally uses Xanax before bed, which helps with sleep but makes it difficult to get up early. Attempts to avoid daytime naps. Feels better overall but continues to struggle with sleep initiation. - Started Trazodone 50 mg, 1 tablet once a day for 30 days for insomnia. 06/25/2025 Mononeuropathy, unspecified (ICD-10 - G58.9) Patient describes chronic nerve pain in his arm and chest, with electric shock sensations triggered by movement. He has a history of prior surgery, MRI, and ultrasounds, and has consulted shoulder and neck surgeons. Gabapentin was tried for pain relief, with inconsistent results. 04/30/2025 Benign essential HTN (ICD-10 - I10) 02/20/2025 Negative depression screening (ICD-10 - Z13.31) 01/23/2025 Benign essential HTN (ICD-10 - I10) 12/26/2024 Obstructive sleep apnea (ICD-10 - G47.33) 12/26/2024 Cervical stenosis of spine (ICD-10 - M48.02) 02/20/2025 Encounter for screening for cardiovascular disorders (ICD-10 - Z13.6) 01/23/2025 Encounter for screening for cardiovascular disorders (ICD-10 - Z13.6) 01/23/2025 Encounter for screening for depression (ICD-10 - Z13.31) 12/26/2024 S/P cervical spinal fusion (ICD-10 - Z98.1) 12/26/2024 Mixed hyperlipidemia (ICD-10 - E78.2) 12/26/2024 Dietary counseling and surveillance (ICD-10 - Z71.3) 12/26/2024 Benign essential HTN (ICD-10 - I10) 12/26/2024 Encounter for screening for depression (ICD-10 - Z13.31) 12/26/2024 Other Learning About Depression Screening material was printed Chintan Brito, 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 Major Depressive Disorder Assessment: Patient reports a long-standing history of depression for over 30 years. Current symptoms include persistent low mood, anhedonia, and lack of motivation. Patient denies feelings of hopelessness, helplessness, or suicidal ideation. Sleep is disturbed due to sleep apnea, but appetite remains stable. Concentration is intact, but memory shows some decline. Depression score indicates remission, suggesting partial response to current treatment. Patient has been on paroxetine 60 mg daily for an extended period without significant adjustment. Plan: - Decrease paroxetine from 60 mg to 50 mg daily (cut 20 mg tablet in half) - Add bupropion SR 100 mg PO every morning - Reassess in 3 weeks - Continue marriage counseling as scheduled on January 06 - Consider individual counseling Generalized Anxiety Disorder Assessment: Patient reports lifelong excessive worry about matters beyond his control, attributed to learned behavior from his mother. Current anxiety is stable with no recent panic attacks. Patient uses alprazolam as needed, sometimes twice daily. Plan: - Continue current alprazolam regimen as prescribed by primary care physician - Advised that concurrent use of marijuana and alprazolam is not recommended in our practice - Encourage non-pharmacological anxiety management techniques Cannabis Use Assessment: Patient reports using marijuana 2-3 times daily via pipe. Chronic cannabis use may be contributing to mood symptoms and potentially interacting with prescribed medications. Plan: - Educate patient on potential negative impacts of chronic cannabis use on mood - Monitor impact of cannabis use on treatment response - Reassess need for intervention if symptoms do not improve with medication adjustments Hypertension Assessment: Patient has a history of hypertension, currently managed with lisinopril 10 mg daily. Plan: - Continue lisinopril 10 mg daily Hyperlipidemia Assessment: Patient reports a history of high cholesterol. Plan: - Continue current management (specific treatment not mentioned in transcript) Sleep Apnea Assessment: Patient reports diagnosed sleep apnea with use of CPAP machine, but still experiences non-refreshing sleep. Plan: - Continue use of CPAP machine - Monitor sleep quality with medication adjustments Aortic Aneurysm Assessment: Patient was diagnosed with an aortic aneurysm in September. Parts Cleaner Dr. Rodriguez advised monitoring. Plan: - Continue monitoring as advised by field checker Disclaimer: This note has been transcribed using speech recognition software and serves as a reflection of the patient's visit. While efforts have been made to ensure accuracy, there may be errors, including fire officer inaccuracies and misspellings of medication names. This document should not be considered a verbatim record, and any discrepancies should be verified with the provider. 01/23/2025 Other Chintan Brito, a retired male patient with a history of chronic bronchitis, sleep apnea, and recent pneumonia, presents for follow-up of depression management. Major Depressive Disorder Assessment: Patient reports improvement in depressive symptoms since last visit. He notes reduced rumination and improved ability to manage intrusive thoughts. Patient states he is feeling better and having good days more than bad days. He reports decreased tendency to dwell on things or make a big deal out of things that aren't. Patient remains mostly homebound by choice, engaging in household activities and animal care. He participates in weekly social outings for [facility]. Current medication regimen includes Paxil 50 mg and bupropion SR 100 mg, which appears to be providing benefit. Plan: - Decrease Paxil from 50 mg to 40 mg daily - Discontinue bupropion SR 100 mg - Start bupropion XL 150 mg, 1 tablet PO daily in the morning - Prescribe 90-day supply of bupropion XL 150 mg to be filled at [facility] pharmacy - Follow up in 1 month to assess response to medication changes - If stable at next follow-up, consider extending appointment intervals to 2 months, then 3 months Disclaimer: This note has been transcribed using speech recognition software and serves as a reflection of the patient's visit. While efforts have been made to ensure accuracy, there may be errors, including fire officer inaccuracies and misspellings of medication names. This document should not be considered a verbatim record, and any discrepancies should be verified with the provider. 02/20/2025 Other Chintan Brito, male patient with a history of depression and anxiety, reports improvement in symptoms and overall well-being. Major Depressive Disorder Assessment: Patient reports significant improvement in depressive symptoms. PHQ-9 score is 1, indicating minimal to no depression. Patient states he is feeling better and not dwelling on negatives as much. Intrusive thoughts and rumination have decreased. Sleep remains suboptimal, but appetite is normal. No side effects reported from current medications. Marriage counseling is ongoing and appears to be beneficial. Plan: - Continue Paxil (paroxetine) at current dose - Continue bupropion at current dose (prescription valid until April 24) - Maintain current medication regimen for at least 6 months before considering any changes - Follow up in 2 months to reassess Generalized Anxiety Disorder Assessment: Patient reports improvement in anxiety symptoms. PEREZ-7 score is 2, indicating minimal anxiety. No recent panic or anxiety attacks reported. Current medication regimen appears effective in managing symptoms. Plan: - Continue current medication regimen (Paxil and bupropion) - Encourage continuation of marriage counseling - Follow up in 2 months to reassess Hypertension Assessment: Patient reports recent changes in blood pressure medication. Blood pressure reading today shows improvement. Patient started a new medication last week and increased the dose yesterday. Plan: - Continue current antihypertensive medication regimen as prescribed by primary care provider - Monitor blood pressure at follow-up visits Disclaimer: This note has been transcribed using speech recognition software and serves as a reflection of the patient's visit. While efforts have been made to ensure accuracy, there may be errors, including fire officer inaccuracies and misspellings of medication names. This document should not be considered a verbatim record, and any discrepancies should be verified with the provider. 06/25/2025 Other <thead><tr><th style=width:4 00px>Attribut e Name (Date Range)</th> <th>Value Range</th> <th>Latest Finding</th> <th>Reference Range</th> </tr> </thead> <tbody> <tr> <td style=width:4 00px><span wnrop=us619> WBC</span> (09/30/2024 - 10/02/2024)</t d> <td>9.8 to <span uyyuj=bq152> 20.2 (H)</span></td > <td><span lzein=kg626> 20.2 (H)</span></td > <td></td> </tr> <tr> <td style=width:4 00px><span pdinx=re649> Neutrophil abs</span> (10/01/2024 - 10/02/2024)</t d> <td>17.8 (H) to <span zypiu=cd236> 17.9 (H)</span></td > <td><span bkvio=ij425> 17.9 (H)</span></td > <td></td> </tr> <tr> <td style=width:4 00px><span ooymy=mk286> CO2</span> (09/30/2024 - 10/02/2024)</t d> <td><span kusbt=fe592> 20 (L)</span> to <span uflqf=ze541> 21 (L)</span></td > <td><span rztxf=ia300> 20 (L)</span></td > <td>22 - 32 mmol/L</td> </tr> <tr> <td style=width:4 00px><span nbpky=kv265> BUN</span> (09/30/2024 - 10/02/2024)</t d> <td>18 to <span ijrrk=vz894> 26 (H)</span></td > <td><span fmapv=gr722> 26 (H)</span></td > <td>6 - 25 mg/dL</td> </tr> <tr> <td style=width:4 00px><span upcin=dr627> Phosphorus, pl</span> (10/02/2024)</ td> <td><span imzlj=tx944> 4.9 (H)</span></td > <td><span yfjsa=ko865> 4.9 (H)</span></td > <td>2.3 - 4.5 mg/dL</td> </tr> <tr> <td style=width:4 00px><span vxzox=md531> RDW SD</span> (09/30/2024 - 10/02/2024)</t d> <td>45.4 to <span mnewv=sh990> 48.7 (H)</span></td > <td><span torfg=no151> 45.4</span></t d> <td>35.7 - 48.1 fL</td> </tr> <tr> <td style=width:4 00px><span ytgbr=xd237> Hct</span> (09/30/2024 - 10/02/2024)</t d> <td>45.1 to <span ffepe=os744> 50.8 (H)</span></td > <td><span inwcc=np690> 45.1</span></t d> <td>38.9 - 50.3 %</td> </tr> <tr> <td style=width:4 00px><span wzetr=mq760> Glucose</span> (09/30/2024 - 10/02/2024)</t d> <td>95 to 158</td> <td>139</td> <td>70 - 199 mg/dL</td> </tr> <tr> <td style=width:4 00px><span dxdva=fm948> Creatinine</sp an> (09/30/2024 - 10/02/2024)</t d> <td>0.89 to 0.97</td> <td>0.89</td> <td>0.80 - 1.30 mg/dL</td> </tr> <tr> <td style=width:4 00px><span cltjd=us374> Chloride</span > (09/30/2024 - 10/02/2024)</t d> <td>105 to 107</td> <td>105</td> <td>97 - 110 mmol/L</td> </tr> <tr> <td style=width:4 00px><span kwskt=kn924> Anion gap</span> (09/30/2024 - 10/02/2024)</t d> <td>12 to 13</td> <td>12</td> <td>2 - 15 mmol/L</td> </tr> <tr> <td style=width:4 00px><span yejim=fn589> Sodium</span> (09/30/2024 - 10/02/2024)</t d> <td>137 to 141</td> <td>137</td> <td>135 - 145 mmol/L</td> </tr> <tr> <td style=width:4 00px><span hdnnj=nj831> Potassium, pl</span> (09/30/2024 - 10/02/2024)</t d> <td>4.4 to 4.5</td> <td>4.5</td> <td>3.3 - 4.9 mmol/L</td> </tr> <tr> <td style=width:4 00px><span ahsmu=rc333> Calcium</span> (09/30/2024 - 10/02/2024)</t d> <td>8.9 to 9.4</td> <td>8.9</td> <td>8.5 - 10.3 mg/dL</td> </tr> <tr> <td style=width:4 00px><span eqvfd=wv857> Albumin</span> (09/30/2024 - 10/02/2024)</t d> <td>4.3</td> <td>4.3</td> <td>3.5 - 5.0 g/dL</td> </tr> <tr> <td style=width:4 00px><span gnnma=ey896> Hgb</span> (09/30/2024 - 10/02/2024)&lt ;/td> <td>15.2 to 16.4</td> <td>15.2</td> <td>13.0 - 17.5 g/dL</td> </tr> <tr> <td style=width:4 00px><span wiykn=uq713> Plt</span> (09/30/2024 - 10/02/2024)</t d> <td>197 to 253</td> <td>242</td> <td></td> </tr> <tr> <td style=width:4 00px><span nosif=in873> RBC</span> (09/30/2024 - 10/02/2024)</t d> <td>4.80 to 5.31</td> <td>4.80</td> <td></td> </tr> <tr> <td style=width:4 00px><span xakjt=op695> MCH</span> (09/30/2024 - 10/02/2024)</t d> <td>30.9 to 31.7</td> <td>31.7</td> <td>27.1 - 33.3 pg</td> </tr> <tr> <td style=width:4 00px><span ngykp=qp766> MCHC</span> (09/30/2024 - 10/02/2024)</t d> <td>32.3 to 33.8</td> <td>33.7</td> <td>32.3 - 35.7 g/dL</td> </tr> <tr> <td style=width:4 00px><span hfpfx=by773> RDW CV</span> (09/30/2024 - 10/02/2024)</t d> <td>13.3 to 13.8</td> <td>13.3</td> <td>11.1 - 14.9 %</td> </tr> <tr> <td style=width:4 00px><span ywqlo=iv245> MPV</span> (09/30/2024 - 10/02/2024)&lt ;/td> <td>9.7 to 10.2</td> <td>9.7</td> <td>9.1 - 12.3 fL</td> </tr> <tr> <td style=width:4 00px><span faprd=nr507> MCV</span> (09/30/2024 - 10/02/2024)</t d> <td>92.7 to 95.7</td> <td>94.0</td> <td>81.3 - 96.4 fL</td> </tr> <tr> <td style=width:4 00px><span kfkxb=ff041> NRBC abs</span> (09/30/2024 - 10/02/2024)</t d> <td>0.00</td> <td>0.00</td> <td></td> </tr> <tr> <td style=width:4 00px><span diljm=rj296> Lymphocyte abs</span> (09/30/2024 - 10/02/2024)</t d> <td>0.9 to 2.5</td> <td>1.6</td> <td></td> </tr> <tr> <td style=width:4 00px><span nqoix=gz870> Monocyte abs</span> (09/30/2024 - 10/02/2024)</t d> <td>0.2 to 0.6</td> <td>0.6</td> <td></td> </tr> <tr> <td style=width:4 00px><span qicru=zn343> Basophil abs</span> (09/30/2024 - 10/02/2024)</t d> <td>0.0 to 0.1</td> <td>0.0</td> <td></td> </tr> <tr> <td style=width:4 00px><span lbvay=ou349> Eosinophil abs</span> (09/30/2024 - 10/02/2024)</t d> <td>0.0 to 0.2</td> <td>0.0</td> <td></td> </tr> <tr> <td style=width:4 00px><span xgdin=ag469> Imm gran abs</span> (09/30/2024 - 10/02/2024)</t d> <td>0.0 to 0.1</td> <td>0.1</td> <td></td> </tr> <tr> <td style=width:4 00px><span jawvs=oq516> Lymphocyte pct</span> (09/30/2024 - 10/02/2024)</t d> <td>4.6 to 25.4</td> <td>7.7</td> <td></td> </tr> <tr> <td style=width:4 00px><span akfoq=st616> Monocyte pct</span> (09/30/2024 - 10/02/2024)</t d> <td>0.9 to 4.8</td> <td>2.7</td> <td></td> </tr> <tr> <td style=width:4 00px><span mdpxa=gi477> Basophil pct</span> (09/30/2024 - 10/02/2024)</t d> <td>0.1 to 1.2</td> <td>0.1</td> <td></td> </tr> <tr> <td style=width:4 00px><span qgrem=lr445> Eosinophil pct</span> (09/30/2024 - 10/02/2024)</t d> <td>0.0 to 2.5</td> <td>0.1</td> <td></td> </tr> <tr> <td style=width:4 00px><span cktzi=my867> Imm gran pct</span> (09/30/2024 - 10/02/2024)</t d> <td>0.3 to 0.5</td> <td>0.4</td> <td></td> </tr> <tr> <td style=width:4 00px><span tcnmk=zw277> Neutrophil pct</span> (09/30/2024 - 10/02/2024)</t d> <td>65.8 to 93.8</td> <td>89.0</td> <td></td> </tr> <tr> <td style=width:4 00px><span qcggs=og197> CRP</span> (09/30/2024 - 10/01/2024)</t d> <td>2.6 to 2.8</td> <td>2.6</td> <td> - 10.0 mg/L</td> </tr> <tr> <td style=width:4 00px><span onnvu=gc437> Glucose, POC</span> (10/01/2024 - 10/02/2024)</t d> <td>117 to 134</td> <td>117</td> <td>70 - 199 mg/dL</td> </tr> <tr> <td style=width:4 00px><span ltlpc=nc806> eGFR</span> (09/30/2024 - 10/02/2024)</t d> <td>89</td> <td>89</td> <td></td> </tr> <tr> <td style=width:4 00px><span tqdlz=cz863> Bilirubin, total</span> (09/30/2024)</ td> <td>0.7</td> <td>0.7</td> <td>0.1 - 1.2 mg/dL</td> </tr> <tr> <td style=width:4 00px><span eyavb=wb749> AST</span> (09/30/2024)</ td> <td>32</td> <td>32</td> <td></td> </tr> <tr> <td style=width:4 00px><span tuxfp=dq215> ALT</span> (09/30/2024)</ td> <td>50</td> <td>50</td> <td></td> </tr> <tr> <td style=width:4 00px><span fowin=wf536> Alk phos</span> (09/30/2024)</ td> <td>54</td> <td>54</td> <td></td> </tr> <tr> <td style=width:4 00px><span uervc=wm366> Protein, pl</span> (09/30/2024)</ td> <td>7.1</td> <td>7.1</td> <td>6.5 - 8.5 g/dL</td> </tr> <tr> <td style=width:4 00px><span cqvvh=xm398> NT-proBNP</spa n> (09/30/2024)</ td> <td></td> <td></td> <td> - 300 pg/mL</td></tr ></tbody> Patient reports significant sadness and emotional distress since the of his dog yesterday. He describes a close kessler with his pet and ongoing efforts to cope by focusing on positive thoughts. Plan Of Treatment Next Appt Details Provider Name:Jerry Bain , 09/24/2025 08:45:00 AM, [address] [facility], [facility] [address], [place], [address], Insurance Providers Payer Name Payer Address Payer Phone Subscriber Number Group Number Insured Name Patient Relationship to Insured Coverage Start Date Coverage End Date [facility], [place] Medicare Replacement/ [employer]vant[employer] - [employer] [address] [place] [phone] [id number] Chintan Medrano Self - patient is the insured Medical (General) History Medical History History ICD Code Past Psychiatric History: Anxiety Disord er abdominal aortic aneurysm: Yes hyperlipidemia: Yes vitamin D deficiency: Yes Obstructive sleep apnea Hypertension Generalized anxiety disorder Major depression, in remission Major depressive disorder, in remission Chronic nerve pain, post-surgical Surgical History Surgery Date(Month/Year) Previous surgery, possible nerve-related , date not specified
--- OUTSIDE RECORDS SUMMARY | 2025-09-03 01:02 | XMS_ITS | Clinical Summary ---
Author Organization [facility] Address [address] [place] [address] Care Team Providers Care Clay Carman Name Role Phone Unavailable Primary Care Provider Unavailabl e Source Comments [facility],non-owned Affiliates and Associated Physician Practices is amultiple site organization consisting of ambulatory clinics and hospital sitesin [place], [place], [place] and [place]. This disclosure is being madepursuant to the Care Everywhere program and may not contain all information available regarding this patient. Last updated 18.[facility] Social History Tobacco Use Types Packs/Day Years [...] 2014 ZOSTER VACCINE (1 of 2) 2014 DEPRESSION SCREENING 10/09/2024 COVID-19 VACCINE ( - 2024-2 6 season) 2025 INFLUENZA VACCINE (#1) 2025 Respiratory Syncytial Virus [...]
[2025-09-03 07:44] VITALS: BP 149/78; PULSE 63; RESP 19; TEMP 36.5; O2SAT 98; BMI 29.5
[2025-09-03] MEDS: LACTATED RINGERS 1,000 ML 150 ML IV CONT (07:51)
--- NOTE | 2025-09-03 08:10 | PM.IMHP ---
H&P: HPI History of Present Illness Date/Time: 09/03/25 08:10 Chief Complaint: Screening colonoscopy Narrative: This is the patient's 2nd screening colonoscopy. There are no GI symptoms and there is no family history of colorectal cancer. Review of Systems Review of Systems: All systems reviewed & are unremarkable except as noted in HPI and below PMFSH Past Medical History Medical History Rotator cuff tear Dislocation, shoulder closed Anxiety Depression c3 thru 7 -- 12-- Obesity Surgical History Surgical History History of fusion of cervical spine H/O shoulder surgery - Family History Family History Father Family history of cardiovascular disease Acute myocardial infarction, Onset Age: 40 Family history of aortic aneurysm Mother Family history of Alzheimer's disease Social History Social History Smoking packs per day: 0.5 Smoking cigarettes per day: 10.0 Years smoked: 35 Smoking pack-years: 17.50 Smoking status: Former smoker (SMOKING AGE 17 1PPD FOR 38 YEARS; QUIT 12/29/21, RESTARTED) Tobacco type: cigarettes Alcohol intake: current Drinks per week: 6 Alcohol use details: rarely Substance use: current Substance use type: marijuana Other substance usage details: smokes or vapes Lack of Transportation: No Lack of Food: Never True Current Housing: I Have Housing Concerned About Future Housing: No Difficulty Paying Gas/Electric Bills: No Difficulty Paying for Meds: No Currently Unemployed: No Education: Trade/Vocational Certificate Difficulty w/ Childcare or Family Care: No Living arrangements: with family Occupation/Education: occupation Gender identity (if verbalized by the patient): Male Meds Home Medications and Allergies Home Medications ?Medication ?Instructions ?Recorded ?Confirmed ?Type aspirin 81 mg tablet,delayed 81 mg PO DAILY #90 tabs 08/10/21 09/03/25 Rx release icosapent ethyl 1 gram capsule 2 g PO BID 04/21/22 09/03/25 History ([facility]) CPAP and supplies #1 ea 03/09/23 07/29/25 Rx bupropion HCl 150 mg 24 hr tablet, 150 mg PO DAILY 02/13/25 09/03/25 History extended release tadalafil 10 mg tablet See Rx Instructions .Route 04/07/25 08/19/25 Rx .COMPLEX #30 tabs losartan 100 mg tablet 100 mg PO DAILY #90 tabs 04/14/25 09/03/25 Rx alprazolam 0.5 mg tablet 0.5 mg PO BID PRN insomnia #60 tabs 07/29/25 08/19/25 Rx ergocalciferol (vitamin D2) 1,250 1,250 mcg PO WEEKLY #12 caps 07/29/25 09/03/25 Rx mcg (50,000 unit) capsule (Vitamin D2) tamsulosin 0.4 mg capsule 0.4 mg PO DAILY #90 caps 07/29/25 09/03/25 Rx paroxetine HCl 40 mg tablet See Rx Instructions .Route 08/11/25 09/03/25 Rx .COMPLEX #90 tabs ezetimibe 10 mg tablet (Zetia) See Rx Instructions .Route 09/02/25 09/03/25 Rx .COMPLEX #90 tabs simvastatin 40 mg tablet See Rx Instructions .Route 09/02/25 09/03/25 Rx .COMPLEX #90 tabs Allergies Allergy/AdvReac Type Severity Reaction Status Date / Time niacin Allergy Unknown flushing Verified 09/03/25 07:42 Vital Signs Vital Signs - 24 hr 09/03/25 07:44 Temperature 97.7 F Pulse Rate 63 Respiratory Rate 19 Blood Pressure 149/78 H Pulse Oximetry 98 Oxygen Delivery Room Air Exam Const: General: cooperative and healthy appearing Resp: Effort & Inspection: normal respiratory effort and able to speak in complete sentences Auscultation: clear to auscultation bilaterally Cardio: Rate: regular rate Rhythm: regular rhythm GI: Inspection: normal to inspection GI Palp: No No hepatosplenomegaly present Auscultation: normal bowel sounds Rectal Exam: deferred Skin: General skin exam: normal color Psych: Appearance: grossly normal Mental Status: mental status grossly normal Assessment and Plan Assessment and plan (1) Screening for colon cancer: Code(s): Z12.11 - Encounter for screening for malignant neoplasm of colon Status: Acute Assessment and Plan: The patient is deemed a good candidate for the procedure. Consent signed. Will proceed.
--- NOTE | 2025-09-03 08:27 | WPDANESEPPF ---
Anes - Initial Pre Proc Eval Procedure: Operation Date: 09/03/25 09:00 Proposed Procedures p Screening Colonoscopy - Donta Tavares MD Date/Time: 09/03/25 08:27 Surgeon: Donta Tavares MD Pre Op Diagnosis: Screening Patient Data Age: 60 Gender: M Height: 1.78 m Weight: 93.5 kg Last Vital Signs Temp 97.7 F 09/03/25 07:44 Pulse 63 09/03/25 07:44 Resp 19 09/03/25 07:44 BP 149/78 H 09/03/25 07:44 Pulse Ox 98 09/03/25 07:44 O2 Del Method Room Air 09/03/25 07:44 Allergies Allergy/AdvReac Type Severity Reaction Status Date / Time niacin Allergy Unknown flushing Verified 09/03/25 07:42 Home Medications ?Medication ?Instructions ?Recorded ?Confirmed ?Type aspirin 81 mg tablet,delayed 81 mg PO DAILY #90 tabs 08/10/21 09/03/25 Rx release icosapent ethyl 1 gram capsule 2 g PO BID 04/21/22 09/03/25 History (Vascepa) CPAP and supplies #1 ea 03/09/23 07/29/25 Rx bupropion HCl 150 mg 24 hr tablet, 150 mg PO DAILY 02/13/25 09/03/25 History extended release tadalafil 10 mg tablet See Rx Instructions .Route 04/07/25 08/19/25 Rx .COMPLEX #30 tabs losartan 100 mg tablet 100 mg PO DAILY #90 tabs 04/14/25 09/03/25 Rx alprazolam 0.5 mg tablet 0.5 mg PO BID PRN insomnia #60 tabs 07/29/25 08/19/25 Rx ergocalciferol (vitamin D2) 1,250 1,250 mcg PO WEEKLY #12 caps 07/29/25 09/03/25 Rx mcg (50,000 unit) capsule (Vitamin D2) tamsulosin 0.4 mg capsule 0.4 mg PO DAILY #90 caps 07/29/25 09/03/25 Rx paroxetine HCl 40 mg tablet See Rx Instructions .Route 08/11/25 09/03/25 Rx .COMPLEX #90 tabs ezetimibe 10 mg tablet (Zetia) See Rx Instructions .Route 09/02/25 09/03/25 Rx .COMPLEX #90 tabs simvastatin 40 mg tablet See Rx Instructions .Route 09/02/25 09/03/25 Rx .COMPLEX #90 tabs Patient hx anesthesia problems: none Family hx anesthesia problems: none Results Review: All pre-operative results and documents have been reviewed as part of the pre-operative evaluation. [facility] Past Medical History Medical History Rotator cuff tear Dislocation, shoulder closed Anxiety Depression c3 thru 7 -- -07-28 Obesity Surgical History Surgical History History of fusion of cervical spine H/O shoulder surgery - Family History Family History Father Family history of cardiovascular disease Acute myocardial infarction, Onset Age: 40 Family history of aortic aneurysm Mother Family history of Alzheimer's disease Social History Social History Smoking packs per day: 0.5 Smoking cigarettes per day: 10.0 Years smoked: 35 Smoking pack-years: 17.50 Smoking status: Former smoker (SMOKING AGE 17 1PPD FOR 38 YEARS; QUIT 12/29/21, RESTARTED) Tobacco type: cigarettes Alcohol intake: current Drinks per week: 6 Alcohol use details: rarely Substance use: current Substance use type: marijuana Other substance usage details: smokes or vapes Lack of Transportation: No Lack of Food: Never True Current Housing: I Have Housing Concerned About Future Housing: No Difficulty Paying Gas/Electric Bills: No Difficulty Paying for Meds: No Currently Unemployed: No Education: Trade/Vocational Certificate Difficulty w/ Childcare or Family Care: No Living arrangements: with family Occupation/Education: occupation Gender identity (if verbalized by the patient): Male Anes - Eval Final PreProcedure Day of Procedure 09/03/25 08:27 Patient weight: overweight Lungs: normal air movement Airway: Mallampati scale class II Neurological: alert and oriented Last oral intake: >/= 8 hours ASA classification: III Emergent: no Anesthetic plan: proceed Anesthesia type and monitoring: general GIVS and standard monitoring Results Review: All pre-operative results and documents have been reviewed as part of the pre-operative evaluation. HTN, hyperlipidemia, ORQUIDEA, ex smoker, active without cp or sob. Informed Consent: The patient's anesthetic plan and its attendant risks and benefits were discussed with the patient/family/POA. Questions were solicited and answers provided to the satisfaction of the patient/family/POA.
--- NOTE | 2025-09-03 09:01 | S_PTH ---
PATIENT: Chintan López LOC: [facility] U#:[id number] AGE/SX: 60/M ROOM: RE09/03/[address]: Donta Tavares MD : 1965 BED: DIS: 09/03/2025 SPEC #: [id number] RECD: 09/03/25 09:51 STATUS: RENE REShala #: [id number] CLAUDIO: 09/03/25 09:[address]: Donta Tavares DEPT: [facility] Surgical RECD BY: Gail Cartwright ENTERED: 09/03/25 09:51 SP TYPE: Surgical OTHR DR: Josefa Parry DO Tissues: A - Colon Polypectomy Procedures: Hematoxylin and Eosin Stain Gross and Microscopic Level 4
[2025-09-03 09:04] VITALS: BP 110/68; PULSE 69; RESP 20; O2SAT 95
[2025-09-03 09:14] VITALS: BP 109/68; PULSE 65; RESP 12; O2SAT 98
[2025-09-03 09:24] VITALS: BP 131/74; PULSE 67; RESP 20; O2SAT 98
== END 2025-09-03 09:31 | disposition home or self-care (01) ==
PROVIDERS: PCP Family Medicine; Referring Provider Nurse Practitioner; Visit Provider Internal Medicine Gastroenterology
PROC: 0DJD8ZZ Inspection of Lower Intestinal Tract, Via Natural or Artificial Opening Endoscopic (ICD-10-PCS; CPT 45378; principal; 2025-09-03 09:00)
DX: Z12.11 Encounter for screening for malignant neoplasm of colon (principal); D12.2 Benign neoplasm of ascending colon; K57.30 Diverticulosis of large intestine without perforation or abscess without bleeding; F12.90 Cannabis use, unspecified, uncomplicated; Z87.891 Personal history of nicotine dependence
CPT/HCPCS: 45385; 88305; J2003; J2704; J7120